=== PATIENT | male | born 1960 | race Caucasian/White ===

== ENCOUNTER 2017-12-05 16:22 | Emergency (ER) | payer MEDICARE, OTHER ==
[~2017-12-05] VITALS: Ht 177.8 cm; Wt 77.1 kg
[2017-12-05] MEDS ORDERED: SERTRALINE HCL100 MG PO (16:38)
[2017-12-05] MEDS ORDERED: GABAPENTIN800 MG PO (16:38)
[2017-12-05] MEDS ORDERED: PANTOPRAZOLE SO40 MG (16:39)
[2017-12-05] MEDS ORDERED: AMLODIPINE BES2.5 MG PO (16:39)
[2017-12-05] MEDS ORDERED: POTASSIUM CHLO20 ME1 PO (16:39)
[2017-12-05] MEDS ORDERED: CYCLOBENZAPRINE5 MG (16:39)
[2017-12-05] MEDS ORDERED: KETOROLAC TROME10 MG PO (16:54)
[2017-12-05] MEDS ORDERED: CLEOCIN HCL300 MG PO (16:54)
== END 2017-12-05 17:03 | disposition home or self-care (01) ==
LOC: ED 16:22
DX: R68.84 Jaw pain (principal); Z88.8 Allergy status to other drugs, medicaments and biological substances; Z79.899 Other long term (current) drug therapy
CPT/HCPCS: 99283

== ENCOUNTER 2018-11-15 07:20 | Emergency (ER) | payer MEDICARE, OTHER ==
[~2018-11-15] VITALS: Ht 177.8 cm; Wt 77.1 kg
--- OUTSIDE RECORDS SUMMARY | ~2018-11-15 | XMS | Clinical Summary ---
Demographics + + + | Address | [address] | | | [place] [address] | + + + | Home Phone | | + + + | Preferred Language | Unknown | + + + | Marital Status | | + + + | Restorationist Affiliation | 1038 | + + + | Race | Unknown | + + + | Ethnic Group | Unknown | + + + Author + + + | Author | [facility] | | | and [place] | + + + | Organization | [facility] | | | and [place] | + + + | Address | Unknown | + + + | Phone | Unavailable | + + + Support + + +---------+ + | Name | Relationship | Address | Phone | + + +---------+ + | Shyanne Valdez | ECON | Unknown | | + + +---------+ + | Shae Covarrubias | ECON | Unknown | | + + +---------+ + Care Team Providers + +------+ + | Care Rn Palliative Name | Role | Phone | + +------+ + | Howie Biswas MD | PP | | + +------+ + Allergies + + + + + + | Active Allergy | Reactions | Severity | Noted | Comments | | | | | Date | | + + + + + + | Adhesive & Tape | Hives | High | 08/18/19 | | | | | | 18 | | + + + + + + | Latex | Rash | High | 08/18/19 | | | | | | 18 | | + + + + + + | Meperidine | Hives | High | 08/28/19 | | | | | | 12 | | + + + + + + Medications + + + +---------+------+------+-------+ | Medication | Sig | Dispensed | Refills | Star | End | Statu | | | | | | t | Date | s | | | | | | Date | | | + + + +---------+------+------+-------+ | sertraline | 2 tablets daily | | 0 | 03/26 | | Activ | | (ZOLOFT) 100 mg | | | | 11/12 | | e | | tablet | | | | 12 | | | + + + +---------+------+------+-------+ | nitroglycerin | Place 0.4 mg under | | 0 | 09/1 | | Activ | | (NITROSTAT) 0.4 mg | the tongue as | | | 4/20 | | e | | SL tablet | needed. | | | 12 | | | + + + +---------+------+------+-------+ | cyclobenzaprine | Take 10 mg by mouth | | 0 | 09/1 | | Activ | | (FLEXERIL) 10 mg | 3 times daily. | | | 4/20 | | e | | tablet | | | | 12 | | | + + + +---------+------+------+-------+ | amLODIPine | Take 2.5 mg by mouth | | 0 | | | Activ | | (NORVASC) 2.5 mg | Daily. | | | | | e | | tablet | | | | | | | + + + +---------+------+------+-------+ | pantoprazole | Take 40 mg by mouth | | 0 | | | Activ | | (PROTONIX) 40 mg | every morning | | | | | e | | tablet | (before breakfast). | | | | | | + + + +---------+------+------+-------+ | potassium chloride | Take 10 mEq by mouth | | 0 | | | Activ | | (KLOR-CON) 10 MEQ | 2 times daily. | | | | | e | | ER tablet | | | | | | | + + + +---------+------+------+-------+ | albuterol 2.5 mg/3 | Take 2.5 mg by | | 0 | | | Activ | | mL nebulizer | nebulization every 4 | | | | | e | | solution | hours as needed for | | | | | | | | Wheezing, Shortness | | | | | | | | of Breath or | | | | | | | | Increased Work of | | | | | | | | Breathing. | | | | | | + + + +---------+------+------+-------+ | calcium | Take 1 tablet by | | 0 | | | Activ | | citrate-vitamin D | mouth 2 times daily. | | | | | e | | (CALCITRATE PLUS D) | | | | | | | | 315 mg-200 units per | | | | | | | | tablet | | | | | | | + + + +---------+------+------+-------+ | | Take 1 capsule by | | 0 | | | Activ | | Glucosamine-Chondroi | mouth Daily. | | | | | e | | t-Vit C-Mn | | | | | | | | (GLUCOSAMINE 1500 | | | | | | | | COMPLEX) CAPS | | | | | | | + + + +---------+------+------+-------+ | ibuprofen | Take 600 mg by mouth | | 0 | | | Activ | | (ADVIL,MOTRIN) 600 | 3 times daily. | | | | | e | | MG tablet | | | | | | | + + + +---------+------+------+-------+ | acetaminophen | Take 1,300 mg by | | 0 | | | Activ | | (TYLENOL 8 HOUR | mouth Daily as | | | | | e | | ARTHRITIS PAIN) 650 | needed for Pain. | | | | | | | MG CR tablet | | | | | | | + + + +---------+------+------+-------+ | gabapentin | Take 300 mg by mouth | | 0 | | | Activ | | (NEURONTIN) 300 mg | 3 times daily. | | | | | e | | capsule | | | | | | | + + + +---------+------+------+-------+ | albuterol (PROAIR | Inhale 2 puffs into | | 0 | | | Activ | | HFA) 90 mcg/puff | the lungs every 4 | | | | | e | | inhaler | hours as needed for | | | | | | | | Wheezing. | | | | | | + + + +---------+------+------+-------+ Active Problems + + + | Problem | Noted Date | + + + | BACK PAIN, CHRONIC | | + + + Encounters +--------+ + + + + | Date | Type | Specialty | Care Team | Description | +--------+ + + + + | 08/31/ | Telephone | | Berto Pruitt, | Appointment | | 2019 | | | MD | | +--------+ + + + + from Last 3 Months Immunizations + + + + | Name | Dates Previously Given | Next Due | + + + + | INFLUENZA PF | 05/31/2017, 06/10/2016 | | | QUAD(PED/ADOL/ADULT) | | | | ,PSKT or VIAL | | | + + + + | PNEUMOCOCCAL | 06/10/2016 | | | CONJUGATE 13-VALENT | | | | (PCV13) | | | + + + + | TD PF (2 LF TETANUS) | 03/26/2010 | | | (ADOL/ADULT) | | | + + + + Family History + + +------+ + | Medical History | Relation | Name | Comments | + + +------+ + | Hepatitis B | Brother | | | + + +------+ + | Cancer | Brother | | unknown | + + +------+ + | Cancer | Father | | Throat cancer | + + +------+ + | Arthritis | Mother | | | + + +------+ + | Other (see comment) | Mother | | sepsis | + + +------+ + | Lung cancer | Sister | | reported | + + +------+ + + +------+ + + | Relation | Name | Status | Comments | + +------+ + + | Brother | | | | + +------+ + + | Brother | | Alive | | + +------+ + + | Father | | | | + +------+ + + | Mother | | | | + +------+ + + | Sister | | Alive | | + +------+ + + Social History + + + +--------+ + | Tobacco Use | Types | Packs/Day | Years | Date | | | | | Used | | + + + +--------+ + | Former Smoker | Cigarettes | 0.5 | 32 | 01/16/1970 - | | | | | | 07/27/2016 | + + + +--------+ + + +---+---+---+ | Smokeless Tobacco: | | | | | Never Used | | | | + +---+---+---+ + + | Tobacco Cessation: Counseling Given: No | + + + + +---------+ + | Alcohol Use | Drinks/We | oz/Week | Comments | | | ek | | | + + +---------+ + | No | | | | + + +---------+ + + + + | Sex Assigned at | Date Recorded | | | | + + + | Not on file | | + + + + + + + | Job Start Date | Occupation | Industry | + + + + | Not on file | Not on file | Not on file | + + + + + + + + | Travel History | Travel Start | Travel End | + + + + + + | No recent travel history available. | + + Last Filed Vital Signs + + + + | Vital Sign | Reading | Time Taken | + + + + | Blood Pressure | 124/80 | 08/18/2017838 PST | + + + + | Pulse | 52 | 08/18/2017838 PST | + + + + | Temperature | - | - | + + + + | Respiratory Rate | - | - | + + + + | Oxygen Saturation | 97% | 08/18/2017838 PST | + + + + | Inhaled Oxygen | - | - | | Concentration | | | + + + + | Weight | 79.6 kg (175 lb 7.8 | 08/18/2017838 PST | | | oz) | | + + + + | Height | 177.8 cm (5' 10") | 08/18/2017838 PST | + + + + | Body Mass Index | 25.18 | 08/18/2017838 PST | + + + + Plan of Treatment +--------+---------+ + + + | Date | Type | Specialty | Care Team | Description | +--------+---------+ + + + | 12/05/ | Office | | Berto Pruitt, | | | 2018 | Visit | | MD Melissa Almaguer | | | | | | [place] | | | | | | [place] | | | | | | [id number] | | | | | | | | +--------+---------+ + + + + + + + + | Health Maintenance | Due Date | Last Done | Comments | + + + + + | Hepatitis C | | | | | Screening | 8 | | | + + + + + | Colorectal Cancer | | | | | Screening | 8 | | | | (Colonoscopy) | | | | + + + + + | Vaccine: Zoster (1 | | | | | of 2) | 8 | | | + + + + + | Adult Annual | | | | | Wellness Visit | 5 | | | + + + + + | Statin Therapy | | | | | (optimal intensity) | 5 | | | + + + + + | Vaccine: | | 06/08/2012, 04/23/2010, | | | Dtap/Tdap/Td (2 - | 2 | 03/26/2010 | | | Td) | | | | + + + + + | Vaccine: Influenza | Completed | 05/10/2018, 05/31/2017, | | | | | 06/10/2016, Additional history | | | | | exists | | + + + + + Results Not on filefrom Last 3 Months Insurance + +--------+ +--------+ +---------+--------+ | Payer | Benefi | Subscriber | Effect | Phone | Address | Type | | | t Plan | ID | aranza | | | | | | / | | Dates | | | | | | Group | | | | | | + +--------+ +--------+ +---------+--------+ | MEDICARE | MEDICA | [id number] | 09/24/19 | [phone] | | Medica | | | RE | | 05-Pre | 5 | | re | | | PART A | | sent | | | | | | AND B | | | | | | + +--------+ +--------+ +---------+--------+ | [employer] PLAN | MODA | [id number] | 07/06/ | [phone] | | Medica | | MEDICAID HMO | HEALTH | | 2017-P | 1 | | id | | | MDCD | | resent | | | | | | [place]MO [place] | | | | | | + +--------+ +--------+ +---------+--------+ + +--------+ +--------+ + + | Guarantor Name | Accoun | Relation to | Date | Phone | Billing Address | | | t Type | Patient | of | | | | | | | | | | + +--------+ +--------+ + + | Onesimo Covarrubias | Person | Self | [birth year] | [address] | | | al/[place] | | 1960 | [phone] | [place] [address] | | | myranda | | | 7 (Home) | | + +--------+ +--------+ + + Advance Directives Patient has advance care planning documents on file. For more information, please contact:[place] [address]
--- OUTSIDE RECORDS SUMMARY | ~2018-11-15 | XMS | Clinical Summary ---
Demographics + + + | Address | [address] | | | [place] [address] | + + + | Home Phone | | + + + | Preferred Language | Unknown | + + + | Marital Status | | + + + | Zoroastrianism Affiliation | Unknown | + + + | Race | White | + + + | Ethnic Group | Not or | + + + Author + + + | Author | [facility] | + + + | Organization | [facility] | + + + | Address | Unknown | + + + | Phone | Unavailable | + + + Support + + + + + | Name | Relationship | Address | Phone | + + + + + | KAROLYN ALEGRIA | ECON | [address] | | | | | #[place] | | | | | [address] | | + + + + + Care Team Providers + +------+ + | Care Pre School Manager Name | Role | Phone | + +------+ + | Kyaw Greene MD | PP | | + +------+ + Source Comments TAZ is fully live on both [facility] and [facility] InPatient.[facility] Allergies Not on File Current Medications No known medications Active Problems Not on file Social History + +-------+ +--------+------+ | Tobacco Use | Types | Packs/Day | Years | Date | | | | | Used | | + +-------+ +--------+------+ | Current Every Day | | | | | | Smoker | | | | | + +-------+ +--------+------+ + + + | Sex Assigned at | Date Recorded | | | | + + + | Not on file | | + + + Last Filed Vital Signs + + + + | Vital Sign | Reading | Time Taken | + + + + | Blood Pressure | - | - | + + + + | Pulse | 52 | 07/02/2006 11:51 AM PST | + + + + | Temperature | - | - | + + + + | Respiratory Rate | - | - | + + + + | Oxygen Saturation | - | - | + + + + | Inhaled Oxygen | - | - | | Concentration | | | + + + + | Weight | 79.4 kg (175 lb) | 07/02/2006 11:51 AM PST | + + + + | Height | 177.8 cm (5' 10") | 07/02/2006 11:51 AM PST | + + + + | Body Mass Index | 25.11 | 07/02/2006 11:51 AM PST | + + + + Plan of Treatment + + + + + | Health Maintenance | Due Date | Last Done | Comments | + + + + + | Pneumococcal (Adult) | | | | | (1 of 1 - PPSV23) | 7 | | | + + + + + | Influenza (Flu) | | | | | vaccination (#1) | 8 | | | + + + + + Results Not on filefrom Last 3 Months
--- OUTSIDE RECORDS SUMMARY | ~2018-11-15 | XMS | Encounter Summary ---
Demographics + + + | Address | [address] | | | [place] [address] | + + + | Home Phone | | + + + | Preferred Language | Unknown | + + + | Marital Status | | + + + | Yazdanism Affiliation | 1038 | + + + | Race | Unknown | + + + | Ethnic Group | Unknown | + + + Author + + + | Author | [facility] | | | and [place] | + + + | Organization | [facility] | | | and [place] | [...] Team Providers + +------+ + | Care Nuclear Equipment Design Engineer Name | Role | Phone | + +------+ + | Howie Biswas MD | PCP | | + +------+ + Reason for Visit + + + | Reason | Comments | + + + | Appointment | | + + + Encounter Details +--------+ + + + + | Date | Type | Department | Care Team | Description | +--------+ + + + + | 08/31/ | Telephone | [facility] | Berto Pruitt, | Appointment | | 2019 | | PULMONARY [address] | | | | | [place], | [place], [place] | | | | | [place] [address] | [place], [place] | | | | | [phone] | [address] | | | | | | | | +--------+ + + + + Social History + + + [...] + + documented as of this encounter Plan of Treatment +--------+---------+ + + + | Date | Type | Specialty | Care Team | Description | +--------+---------+ + + + | 12/05/ | Office | Pulmonology | Berto Pruitt, | | | 2018 | Visit | | MD [address] | | | | | | [place], [place] | | | | | | [place] | | | | | | [address] | | | | | | | | +--------+---------+ + + + documented as of this encounter Visit Diagnoses Not on filedocumented in this encounter"
--- OUTSIDE RECORDS SUMMARY | ~2018-11-15 | XMS | Encounter Summary ---
Demographics + + + | Address | [address] | | | [place] [address] | + + + | Home Phone | | + + + | Preferred Language | Unknown | + + + | Marital Status | | + + + | Denominational Affiliation | 1038 | + + + | Race | Unknown | + + + | Ethnic Group | Unknown | + + + Author + + + | Author | [facility] | | | and [place] | + + + | Organization | [facility] | | | and [place] [...] Team Providers + +------+ + | Care Photovoltaic Solar Cell Designer Name | Role | Phone | + [...] + | 08/31/ | Telephone | [facility] | Berto Pruitt, | Appointment | | 2019 | | PULMONARY [address] | | | | | [place], | [place], [place] | | | | | [place] [address] | [place], [place] | | | | | [phone] | [address] | | | | | | | [...] 2018 | Visit | | MD [address] | | | | | | [place], [place] | | | | | | [place] | | | | | | [address] | | | | | | | | +--------+---------+ + + + documented as of this encounter Visit Diagnoses Not on filedocumented in this encounter"
--- OUTSIDE RECORDS SUMMARY | ~2018-11-15 | XMS | Clinical Summary ---
Demographics + + + | Address | [address] | | | [place] [address] | + + + | Home Phone | | + + + | Preferred Language | Unknown | + + + | Marital Status | | + + + | Congregational Affiliation | 1038 | + + + | Race | Unknown | + + + | Ethnic Group | Unknown | + + + Author + + + | Author | [facility] | | | and [place] | + + + | Organization | [facility] | | | and [place] | [...] Team Providers + +------+ + | Care Bindery Cutter Operator Name | Role | Phone | [...] | | | | | [place] | | | | | | [address] | | | | | | | [...] +--------+ +---------+--------+ | MEDICARE | MEDICA | [id number] | 09/24/19 | [phone] | | Medica | | | RE | | 05-Pre | 5 | | re | | | PART A | | sent | | | | | | AND B | | | | | | + +--------+ +--------+ +---------+--------+ | MOD[employer] PLAN | MODA | [id number] | 07/06/ | [phone] | | Medica | | MEDICAID HMO [...] | | al/[place] | | 1960 | [phone] | [place] [address] | | | myranda | | | 7 (Home) | | + +--------+ +--------+ + + Advance Directives Patient has advance care planning documents on file. For more information, please contact:[facility] [place] [address]
--- OUTSIDE RECORDS SUMMARY | ~2018-11-15 | XMS | Clinical Summary ---
Demographics + + + | Address | [address] | | | [place] [address] | + + + | Home Phone | | + + + | Preferred Language | Unknown | + + + | Marital Status | | + + + | Lutheran Affiliation | Unknown | + + + [...] + | KAROLYN ALEGRIA | ECON | [address] | | | | | #[place] | | | | | [address] | | + + + + + Care Team Providers + +------+ + | Care Aurist Name | Role | Phone | + +------+ + | Kyaw Greene MD | PP | | + +------+ + Source Comments TAZ is fully live on both [facility] and [facility] InPatient.[facility] Allergies Not on File Current Medications No [...]
[~2018-11-15 07:20] MED LIST: ACETAMINOPHEN-1 EAC1 PO; AMLODIPINE BES2.5 MG PO; ANORO ELLIPTA1 EACH INH; CLEOCIN HCL300 MG PO; CLINDAMYCIN HC300 MG PO; CYCLOBENZAPRINE5 MG; GABAPENTIN800 MG PO; KETOROLAC TROME10 MG PO; PANTOPRAZOLE SO40 MG; PANTOPRAZOLE SO40 MG PO; POTASSIUM CHLO20 ME1 PO; SERTRALINE HCL100 MG PO; ULTRAM50 MG PO; VENTOLIN HFA18 GM INH
--- OUTSIDE RECORDS SUMMARY | 2018-11-15 07:24 | XMS ---
PreManage Notification: FRANCINE ALEGRIA Security Funeral Planner Events No recent Security Events currently on file CRITERIA MET - [facility] - [facility] Care Guidelines [facility] Raven Kowalski Licensed Club Manager/Sweatband Cutting Machine Operator 11/19/2017-Current PHONE: [phone] Flaquito Alonso Licensed Club Manager/Sweatband Cutting Machine Operator 11/19/2017-Current PHONE: [phone] Flaquito Alonso Licensed Club Manager/Sweatband Cutting Machine Operator 11/19/2017-Current PHONE: [phone] Howie Biswas [facility] 04/04/2018-Current PHONE: Unknown Flaquito Alonso Primary [facility] 11/19/2017-Current PHONE: [phone] Alek has no Care Guidelines for this patient. Care History Medical/Surgical 04/04/2018 [facility] - Patient is currently established with [facility]. If patient is seen in the ED during business hours. Please contact CHWs at [facility]. Care Recommendation: This patient has had 5 or more Emergency Department visits in the last 12 months.\T\nbsp; Patient requires education on the scope and purpose of the ED as an acute care provider not a Primary Care Provider and should not be utilized for chronic conditions.\T\nbsp; These are guidelines and the provider should exercise clinical judgment when providing care. E.D. VISIT COUNT (12 MO.) 4 [facility]. TOTAL 4 NOTE: Visits indicate total known visits. ED/UCC VISIT TRACKING (12 MO.) 11/15/2018 07:21 [facility] [place] TYPE: Emergency COMPLAINT: - BACK PAIN/NO INJURY 04/03/2018 09:24 [facility] [place] TYPE: Emergency COMPLAINT: - JAW PAIN/NO INJURY DIAGNOSES: - Essential (primary) hypertension - Other prison (current) drug therapy - Allergy status to other drugs, medicaments and biological substances status - Other specified disorders of teeth and supporting structures - Personal history of nicotine dependence 02/25/2018 18:27 [facility] [place] [place] TYPE: Emergency COMPLAINT: - POSS INFECTION DIAGNOSES: - Periapical abscess without sinus - Localized swelling, mass and lump, head - Nicotine dependence, unspecified, uncomplicated - Essential (primary) hypertension - Allergy status to other drugs, medicaments and biological substances status - Other prison (current) drug therapy - Major depressive disorder, single episode, unspecified 12/05/2017 16:[address] [facility] [place] TYPE: Emergency COMPLAINT: - POSS INFECTION IN MOUTH DIAGNOSES: - Jaw pain - Other prison (current) drug therapy - Allergy status to other drugs, medicaments and biological substances status INPATIENT VISIT TRACKING (12 MO.) No inpatient visits to display in this time frame [id number]
[2018-11-15] MEDS ORDERED: MELOXICAM7.5 MG PO (08:21)
[2018-11-15] MEDS ORDERED: NORCO 10-325 T1 EACH PO (08:21)
[2018-11-15] MEDS ORDERED: CYCLOBENZAPRINE10 MG PO (08:21)
== END 2018-11-15 08:50 | disposition home or self-care (01) ==
LOC: ED 07:20
DX: M25.551 Pain in right hip (principal); J44.9 Chronic obstructive pulmonary disease, unspecified; F17.210 Nicotine dependence, cigarettes, uncomplicated; F32.9 Major depressive disorder, single episode, unspecified; I10 Essential (primary) hypertension; Z88.5 Allergy status to narcotic agent; Z79.899 Other long term (current) drug therapy
CPT/HCPCS: 73502; 96372; 99283-25; J1885

== ENCOUNTER 2018-12-26 10:51 | Emergency (ER) | payer MEDICARE, OTHER ==
[~2018-12-26] VITALS: Ht 177.8 cm; Wt 77.1 kg
--- OUTSIDE RECORDS SUMMARY | ~2018-12-26 | XMS | Encounter Summary ---
Demographics + + + | Address | [address] | | | [place] [address] | + + + | Home Phone | | + + + | Preferred Language | Unknown | + + + | Marital Status | | + + + | Alevism Affiliation | Unknown | + + + | Race | White | + + + | Ethnic Group | Not or | + + + Author + + + | Author | [facility] | + + + | Organization | [facility] | + + + | Address | Unknown | + + + | Phone | Unavailable | + + + Support + + + + + | Name | Relationship | Address | Phone | + + + + + | Shyanne Covarrubias | ECON | [address] | | | | | #[place] | | | | | [address] | | + + + + + Care Team Providers + +------+ + | Care Ceiling Installer Name | Role | Phone | + +------+ + | Kyaw Greene MD | PCP | | + +------+ + Reason for Referral Consultation (Routine) +--------+--------+ + + + + | Status | Reason | Specialty | Diagnoses / | Referred By | Referred To | | | | | Procedures | Contact | Contact | +--------+--------+ + + + + | Closed | | Pain Medicine | Diagnoses | Eliot Baez, | Ramana | | | | / Pain | | [address] | MD Tio | | | | Management | Displacement | [address] | [address] | | | | | of lumbar | [address] | [address] | | | | | intervertebr | [place], [place] | [place] | | | | | al disc | [address] | [address] | | | | | without | Phone: | Phone: | | | | | myelopathy | [phone] | [phone] | | | | | Procedures | Fax: | Fax: | | | | | CONSULT TO | [phone] | [phone] | | | | | [facility] | | | +--------+--------+ + + + + Reason for Visit + + + | Reason | Comments | + + + | New patient | | | consultation | | + + + Encounter Details +--------+---------+ + + + | Date | Type | Department | Care Team | Description | +--------+---------+ + + + | 07/02/ | Office | [facility] Orthopaedics | Eliot Baez MD | Displacement of | | 2005 | Visit | & Rehabilitation | [address] | Lumbar | | | | [address] | [address] [place], | Intervertebral Disc | | | | Suite [facility] | [place] [address] | without Myelopathy | | | | [address], | [phone] | (Primary Dx) | | | | [facility] | | | | | | [place], [place] | | | | | | [address] | | | | | | [phone] | | | +--------+---------+ + + + Social History + +-------+ +--------+------+ | Tobacco Use | Types | Packs/Day | Years | Date | | | | | Used | | + +-------+ +--------+------+ | Current Every Day | | | | | | Smoker | | | | | + +-------+ +--------+------+ + + +---------+ + | Alcohol Use | Drinks/Week | oz/Week | Comments | + + +---------+ + | Not Asked | | | | + + +---------+ [...] recent travel history available. | + + documented as of this encounter Last Filed Vital Signs + + + + + | Vital Sign | Reading | Time Taken | Comments | + + + + + | Blood Pressure | - | - | | + + + + + | Pulse | 52 | 07/02/2006 11:51 AM | | | | | PST | | + + + + + | Temperature | - | - | | + + + + + | Respiratory Rate | - | - | | + + + + + | Oxygen Saturation | - | - | | + + + + + | Inhaled Oxygen | - | - | | | Concentration | | | | + + + + + | Weight | 79.4 kg (175 lb) | 07/02/2006 11:51 AM | | | | | PST | | + + + + + | Height | 177.8 cm (5' 10") | 07/02/2006 11:51 AM | | | | | PST | | + + + + + | Body Mass Index | 25.11 | 07/02/2006 11:51 AM | | | | | PST | | + + + + + documented in this encounter Progress Notes Eliot Baez - 07/02/2006 11:57 AM PSTThe patient is Onesimo Covarrubias is a 46 y.o. male who presen ts to me with low back pain and left sciatic nerve pain. The pain has been present since 200 0. The pain began with a work accident. He was lifting and felt pain. The onset of the sympt oms was sudden. The patient had two surgeries in his lower back (1999, 2000). The pain worse evan. The pain is rated as moderate and it is staying the same. The pain was described as con stant. The pain improves with rest and medication and worsens with sitting. The patient believes the symptoms are not changed and interfering with ADL and he cannot wo rk . His major problem is the dysesthetic leg left leg pain. Patient is in moderate distress due to leg pain. He is otherwise a well developed and well nourished. Examination of the lumbar spine reveals 10 degrees of extension, 50 degrees of flexion, an d 10 degrees or right and 10 degrees of left rotation was noted. There was no pain with the range of motion of the lumbar spine. No pain was noted with palpation and percussion of the lumbar and thoracic spine. Muscle spasm was not present. Motor examination of the lower extremities demonstrated 5/5 motor strength of hip flexor, k nee extensor, ankle dorsiflexor, plantar flexor, and EHL on the right. His left EHL was 3/5 and dorsiflexor is 3/5. Light touch was intact throughout the lower extremities. knee and an kle reflexes were bilaterally symmetrical at 1+. No evidence of hyperreflexia of the lower e xtremities were noted. Babinski exam was negative. The patient's gait was antalgic, and the isabelle was poor. Straight leg exam was normal bilaterally. Range of motion of the hips were normal. MRI was shows no active neurocompression. Assessment: dysethesia Plan: I have had a good luck with treating these patients with a spinal cord stimulator. I will make a referral to pain management for possible spinal cord stimulator trial.Electronic ally signed by Eliot Baez at 07/02/2006 12:23 PM PSTdocumented in this encounter Plan of Treatment Not on filedocumented as of this encounter Visit Diagnoses + + | Diagnosis | + + | Displacement of lumbar intervertebral disc without myelopathy - Primary | + + documented in this encounter
--- OUTSIDE RECORDS SUMMARY | ~2018-12-26 | XMS | Encounter Summary ---
Demographics + + + | Address | [address] | | | [place] [address] | + + + | Home Phone | | + + + | Preferred Language | Unknown | + + + | Marital Status | | + + + | Samaritan Affiliation | 1038 | + + + | Race | Unknown | + + + | Ethnic Group | Unknown | + + + Author + + + | Author | [facility] | + + + | Organization | [facility] | + + + | Address | [...] Team Providers + +------+ + | Care Admission Discharge Rn Name | Role | Phone | + +------+ + | Howie Biswas MD | PCP | | + +------+ + Encounter Details +--------+ + + + + | Date | Type | Department | Care Team | Description | +--------+ + + + + | 12/01/ | Orders Only | [facility] | Zari Villagran, | | | 2018 | | Pulmonology [address] | | | | | [address] | | | | | | [place] | | | | | | [address] | | | | | | [phone] | | | +--------+ + + + + Social History + +-------+ +--------+------+ | Tobacco Use | Types | Packs/Day | Years | Date | | | | | Used | | + +-------+ +--------+------+ | Former Smoker | | 0.25 | 30 | | + +-------+ +--------+------+ + +---+---+---+ | Smokeless Tobacco: | | | | | Never Used | | | | + +---+---+---+ + + +---------+ + | Alcohol Use | Drinks/We | oz/Week | Comments | | | ek | | | + + +---------+ + | No | | | | + + +---------+ + + + + | Sex Assigned at | Date Recorded | | | | + + + | Not on file | | + + + as of this encounter Plan of Treatment +--------+---------+ + + + | Date | Type | Specialty | Care Team | Description | +--------+---------+ + + + | 01/06/ | Office | Pulmonology | Dann Frias | | | 2019 | Visit | | Venu Sierra MD [address] | | | | | | [address] | | | | | | [place] [address] | | | | | | [phone] | | | | | | | | +--------+---------+ + + + as of this encounter Visit Diagnoses Not on filein this encounter"
--- OUTSIDE RECORDS SUMMARY | ~2018-12-26 | XMS | Encounter Summary ---
Demographics + + + | Address | [address] | | | [place] [address] | + + + | Home Phone | | + + + | Preferred Language | Unknown | + + + | Marital Status | | + + + | Yarsani Affiliation | Unknown | + + + | Race | White | + + + | Ethnic Group | Not or | + + + Author + + + | Author | [facility] | + + + | Organization | [facility] | + + + | Address | Unknown | + + + | Phone | Unavailable | + + + Support + + + + + | Name | Relationship | Address | Phone | + + + + + | Shyanne Covarrubias | ECON | [address] | | | | | #[place] | | | | | [address] | | + + + + + Care Team Providers + +------+ + | Care Barrel Handler Name | Role | Phone | + +------+ + | Kyaw Greene MD | PCP | | + +------+ + Reason for Visit + + + | Reason | Comments | + + + | Refill Request | | + + + Encounter Details +--------+--------+ + + + | Date | Type | Department | Care Team | Description | +--------+--------+ + + + | 11/17/ | Refill | Cardiology Cardiac | Aditi Phillips RN | Refill Request | | 2011 | | Transplant at [facility] | [address] | | | | | [address] | [facility] | | | | | Mailcode: CH9A | [place], [place] | | | | | [facility] | [address] | | | | | and | | | | | | Floor [place], [place] | | | | | | [address] | | | | | | [phone] | | | +--------+--------+ + + + Social History + +-------+ [...] as of this encounter Plan of Treatment Not on filedocumented as of this encounter Visit Diagnoses Not on filedocumented in this encounter"
--- OUTSIDE RECORDS SUMMARY | ~2018-12-26 | XMS | Encounter Summary ---
Demographics + + + | Address | [address] | | | [place] [address] | + + + | Home Phone | | + + + | Preferred Language | Unknown | + + + | Marital Status | | + + + | Muslim Affiliation | 1038 | + + + | Race | Unknown | + + + | Ethnic Group | Unknown | + + + Author + + + | Author | [facility] | + + + | Organization | [facility] | + + + | Address [...] Team Providers + +------+ + | Care Casino Investigator Name | Role | Phone | + +------+ + | Howie Biswas MD | PCP | | + +------+ + Encounter Details +--------+ + + + + | Date | Type | Department | Care Team | Description | +--------+ + + + + | 12/22/ | Documentati | [facility] | Howie Lakhani DO | | | 2019 | on Only | [facility] | [address] | | | | | [address] | [place] | | | | | [place] | [address] | | | | | [address] | | | | | | [phone] | | | +--------+ + + + [...] [address] | | | | | | [place] [address] | | | | | | [phone] | | | | | | | | +--------+---------+ + + + as of this encounter Visit Diagnoses Not on filein this encounter"
--- OUTSIDE RECORDS SUMMARY | ~2018-12-26 | XMS | Encounter Summary ---
Demographics + + + | Address | [address] | | | [place] [address] | + + + | Home Phone | | + + + | Preferred Language | Unknown | + + + | Marital Status | | + + + | Pentecostalism Affiliation | Unknown | + + + | Race | White | + + + | Ethnic Group | Not or | + + + Author + + + | Author | [facility] | + + + | Organization | [facility] | + + + | Address | Unknown | + + + | Phone | Unavailable | + + + Support + + + + + | Name | Relationship | Address | Phone | + + + + + | Shyanne Covarrubias | ECON | [address] | | | | | #[place] | | | | | [address] | | + + + + + Care Team Providers + +------+ + | Care Mattress Maker Name | Role | Phone | + +------+ + | Kyaw Greene MD | PCP | | + +------+ + Reason for Visit +--------+ + | Reason | Comments | +--------+ + | Other | | +--------+ + Encounter Details +--------+ + + + + | Date | Type | Department | Care Team | Description | +--------+ + + + + | 09/09/ | Telephone | Orthopaedic Spine | Eliot Baez MD | Other | | 2006 | | [place] at [facility] [address] | [address] | | | | | [address] | [address] [facility], | | | | | Mailcode: CH8N | [place] [address] | | | | | [facility] | [phone] | | | | | and [place], [address] | | | | | | Floor [place], [place] | | | | | | [address] | | | | | | [phone] | | | +--------+ + + + [...]
--- OUTSIDE RECORDS SUMMARY | ~2018-12-26 | XMS | Clinical Summary ---
Demographics + + + | Address | [address] | | | [place] [address] | + + + | Home Phone | | + + + | Preferred Language | Unknown | + + + | Marital Status | | + + + | Scientologist Affiliation | Unknown | + + + [...] + | Shyanne Covarrubias | ECON | [address] | | | | | #[place], [place] | | | | | [address] | | + + + + + Care Team Providers + +------+ + | Care Power Tong Operator Name | Role | Phone | + +------+ + | Kyaw Greene MD | PP | | + +------+ + Source Comments TAZ is fully live on both [facility] Ambulatory and [facility] InPatient.[facility] Allergies Not on File Medications No known medications Active Problems Not [...] | | + + + + + Plan of Treatment + + + + + | Health Maintenance | Due Date | Last Done | Comments | + + + + + | Pneumococcal (Adult) | | | | | (1 of 1 - PPSV23) | 7 | | | + + + + + | Influenza (Flu) | | | | | vaccination (Season | 9 | | | | Ended) | | | | + + + + + Results Not on filefrom Last 3 Months
--- OUTSIDE RECORDS SUMMARY | ~2018-12-26 | XMS | Encounter Summary ---
Demographics + + + | Address | [address] | | | [place] [address] | + + + | Home Phone | | + + + | Preferred Language | Unknown | + + + | Marital Status | | + + + | Hindu Affiliation | 1038 | + + + | Race | Unknown | + + + | Ethnic Group | Unknown | + + + Author + + + | Author | [facility] | + + + | Organization | [facility] | + + + | Address [...] Team Providers + +------+ + | Care Machine Stemmer Name | Role | Phone | + +------+ + | Howie Biswas MD | PCP | | + +------+ + Reason for Referral MRI/CAT Scan (Routine) +--------+--------+ + + + + | Status | Reason | Specialty | Diagnoses / | Referred By | Referred To | | | | | Procedures | Contact | Contact | +--------+--------+ + + + + | Closed | | Radiology | Diagnoses | Rodriguez, | [facility] [address] | | | | | | Dann | [address] | | | | | Hypersensiti | Venu Sierra MD | [address]vd | | | | | vity | [address] | [place] | | | | | pneumonitis | [address] | [address] Phone: | | | | | ([facility]) | [address] | [phone] | | | | | Interstitial | [place] | | | | | | lung | [address] | | | | | | disease | Phone: | | | | | | ([facility]) | [phone] | | | | | | Procedures | Fax: | | | | | | CT chest | [phone] | | | | | | high | | | | | | | resolution | | | +--------+--------+ + + + + MRI/CAT Scan (Routine) +--------+--------+ + + + + | Status | Reason | Specialty | Diagnoses / | Referred By | Referred To | | | | | Procedures | Contact | Contact | +--------+--------+ + + + + | Closed | | Radiology | Diagnoses | Rodriguez, | [facility] [address] | | | | | | Vincent | [address] | | | | | Hypersensiti | Venu Sierra MD | Blvd | | | | | vity | [address] | [place] | | | | | pneumonitis | [address] | [address] Phone: | | | | | ([facility]) | [address] | [phone] | | | | | Interstitial | [place] | | | | | | lung | [address] | | | | | | disease | Phone: | | | | | | ([facility]) | [phone] | | | | | | Procedures | Fax: | | | | | | CT chest | [phone] | | | | | | high | | | | | | | resolution | | | +--------+--------+ + + + + Reason for Visit MRI/CAT Scan (Routine) +--------+--------+ + + + + | Status | Reason | Specialty | Diagnoses / | Referred By | Referred To | | | | | Procedures | Contact | Contact | +--------+--------+ + + + + | Closed | | Radiology | Diagnoses | Rodriguez, | [facility] [address] | | | | | | Vincent | [address] | | | | | Hypersensiti | Venu Sierra MD | Blvd | | | | | vity | [address] | [place] | | | | | pneumonitis | [address] | [address] Phone: | | | | | ([facility]) | [address] | [phone] | | | | | Interstitial | [place] | | | | | | lung | [address] | | | | | | disease | Phone: | | | | | | ([facility]) | [phone] | | | | | | Procedures | Fax: | | | | | | CT chest | [phone] | | | | | | high | | | | | | | resolution | | | +--------+--------+ + + + + Encounter Details +--------+ + + + + | Date | Type | Department | Care Team | Description | +--------+ + + + + | 12/12/ | Hospital | [facility] | Dann Frias | Hypersensitivity | | 2019 | Encounter | [facility] | Venu Sierra MD [address] | pneumonitis (HCC); | | | | CT [address] | [address] | Interstitial lung | | | | [address] | [place] [address] | disease (HCC) | | | | [place] [address] | [phone] | | | | | [phone] | | | +--------+ + + + [...] + + + as of this encounter Medications at Time of Discharge + + +--------+---------+ + + | Medication | Sig. | Disp. | Refills | Start | End Date | | | | | | Date | | + + +--------+---------+ + + | amLODIPine | Take 2.5 mg by mouth | | | | | | (NORVASC) 2.5 MG | daily. | | | | | | tablet | | | | | | + + +--------+---------+ + + | atorvastatin | Take 10 mg by mouth | | | | | | (LIPITOR) 10 MG | nightly. | | | | | | tablet | | | | | | + + +--------+---------+ + + | celecoxib | Take 100 mg by mouth | | | | | | (CELEBREX) 100 MG | 2 (two) times | | | | | | capsule | daily. | | | | | + + +--------+---------+ + + | cephALEXin | Take 500 mg by mouth | | | | | | (KEFLEX) 500 MG | 4 (four) times | | | | | | capsule | daily. | | | | | + + +--------+---------+ + + | cyclobenzaprine | Take 5 mg by mouth 2 | | | | | | (FLEXERIL) 5 MG | (two) times daily. | | | | | | tablet | | | | | | + + +--------+---------+ + + | gabapentin | Take 800 mg by mouth | | | | | | (NEURONTIN) 800 MG | 3 (three) times | | | | | | tablet | daily. | | | | | + + +--------+---------+ + + | pantoprazole | Take 40 mg by mouth | | | | | | (PROTONIX) 40 MG | every morning before | | | | | | tablet | breakfast. | | | | | + + +--------+---------+ + + | potassium chloride | Take 20 mEq by mouth | | | | | | (KLOR-CON) 20 MEQ | 2 (two) times | | | | | | packet | daily. | | | | | + + +--------+---------+ + + | sertraline | Take 50 mg by mouth | | | | | | (ZOLOFT) 50 MG | daily. | | | | | | tablet | | | | | | + + +--------+---------+ + + | varenicline | Take one 0.5mg | 53 | 0 | 12/02/19 | | | (CHANTIX SKIP) 0.5 MG | tablet by mouth once | tablet | | 19 | 9 | | X 11 & 1 MG X 42 | daily for 3 days, | | | | | | tabletIndications: | then increase to one | | | | | | Personal history of | 0.5mg tablet twice | | | | | | tobacco use, | daily for 3 days, | | | | | | presenting hazards | then increase to one | | | | | | to health | 1mg tablet twice | | | | | | | daily. | | | | | + + +--------+---------+ + + as of this encounter Plan [...] [address] | | | | | | [place] [address] | | | | | | [phone] | | | | | | | | +--------+---------+ + + + as of this encounter Procedures + +--------+ + + + | Procedure Name | Priori | Date/Time | Associated Diagnosis | Comments | | | ty | | | | + +--------+ + + + | CT CHEST HIGH | Routin | 12/12/2018 | Hypersensitivity | Results for this | | RESOLUTION | e | 3:15 PM | pneumonitis (HCC) | procedure are in the | | | | PDT | Interstitial lung | results section. | | | | | disease (HCC) | | + +--------+ + + + in this encounter Results CT chest high resolution (12/12/2018 3:15 PM) + + + | Impressions | Performed At | + + + | Severe chronic interstitial lung disease with severe fibrotic | [facility] | | changes characterized principally by subpleural honeycombing. The | RADIOLOGY | | patient has had a previous left open lung biopsy and there are also | | | centrilobular ground-glass nodules in the lung bases, latter finding | | | can be seen in chronic hypersensitivity pneumonitis. The pattern | | | of subpleural honeycombing is more typical of UIP, however. Signed | | | by: Gosia Roman, Navneet Sign Date/Time: 12/14/2018 8:23 AM | | + + + + + + | Narrative | Performed At | + + + | CT CHEST WITHOUT CONTRAST (CPT) CT CHEST HIGH RESOLUTION CLINICAL | [facility] | | INFORMATION: ILD with h/o hypersensitivity pneumonitis, | RADIOLOGY | | Hypersensitivity pneumonitis, Interstitial lung disease. [age] | | | year 1/2 pack per day current smoker. COMPARISON: None PROCEDURE: | | | Axial images through the chest with thin section reconstructions. | | | Additional limited prone and expiratory views when possible. | | | Multiplanar reconstructions. At least one of the following CT dose | | | optimization techniques were used: Automated exposure control; | | | Adjustment of mA and/or kV according to patient size; Use of | | | iterative reconstruction technique. FINDINGS: LUNGS, PLEURA AND | | | AIRWAYS: Severe bilateral subpleural predominant | | | honeycombing. Poorly defined diffusely distributed centrilobular | | | ground-glass nodules in the lung bases. Surgical staple line in the | | | left base from previous open lung biopsy. CHEST Mediastinum: No | | | significant pericardial, great vessel or esophageal abnormality. No | | | mediastinal mass. Lymph Nodes: No adenopathy. Upper Abdomen: No | | | significant abnormality in the visualized upper abdomen. BODY WALL | | | Soft Tissues: No bowel or inflamed fat containing hernia, mass or | | | hemorrhage. Bones: No acute fracture or vertebral end plate | | | destruction. No lytic or blastic lesion. | | + + + + + | Procedure Note | + + | Sharif, Rad Results In - 12/14/2018 8:[address] CHEST WITHOUT CONTRAST (CPT) | | CT CHEST HIGH RESOLUTION | | CLINICAL INFORMATION: | | ILD with h/o hypersensitivity pneumonitis, Hypersensitivity | | pneumonitis, Interstitial lung disease. Forty year 1/2 pack per day | | current smoker. | | COMPARISON: | | None | | PROCEDURE: | | Axial images through the chest with thin section reconstructions. | | Additional limited prone and expiratory views when possible. | | Multiplanar reconstructions. | | At least one of the following CT dose optimization techniques were | | used: Automated exposure control; Adjustment of mA and/or kV according | | to patient size; Use of iterative reconstruction technique. | | FINDINGS: | | LUNGS, PLEURA AND AIRWAYS: Severe bilateral subpleural predominant | | honeycombing. Poorly defined diffusely distributed centrilobular | | ground-glass nodules in the lung bases. Surgical staple line in the | | left base from previous open lung biopsy. | | CHEST | | Mediastinum: No significant pericardial, great vessel or esophageal | | abnormality. No mediastinal mass. | | Lymph Nodes: No adenopathy. | | Upper Abdomen: No significant abnormality in the visualized upper | | abdomen. | | BODY WALL | | Soft Tissues: No bowel or inflamed fat containing hernia, mass or | | hemorrhage. | | Bones: No acute fracture or vertebral end plate destruction. No lytic | | or blastic lesion. | | IMPRESSION: | | Severe chronic interstitial lung disease with severe fibrotic changes | | characterized principally by subpleural honeycombing. The patient has | | had a previous left open lung biopsy and there are also centrilobular | | ground-glass nodules in the lung bases, latter finding can be seen in | | chronic hypersensitivity pneumonitis. The pattern of subpleural | | honeycombing is more typical of UIP, however. | | Signed by: Gosia Roman Gordon | | Sign Date/Time: 12/14/2018 8:23 AM | + + + + + + + | Performing | Address | City/State/Zipcode | Phone Number | | Organization | | | | + + + + + | [facility] | [address] | [place] [address] | | + + + + + in this encounter Visit Diagnoses + + | Diagnosis | + + | Hypersensitivity pneumonitis (HCC) | + + | Unspecified allergic alveolitis and pneumonitis | + + | Interstitial lung disease (HCC) | + + | Postinflammatory pulmonary fibrosis | + +"
--- OUTSIDE RECORDS SUMMARY | ~2018-12-26 | XMS | Clinical Summary ---
Demographics + + + | Address | [address] | | | [place] [address] | + + + | Home Phone | | + + + | Preferred Language | Unknown | + + + | Marital Status | | + + + | Yarsani Affiliation | 1038 | + + + | Race | Unknown | + + + | Ethnic Group | Unknown | + + + Author + + + | Author | [facility] | | | and Jitendraana | + + + | Organization | [facility] | | | and Jitendraana | + + + | Address | [...] Team Providers + +------+ + | Care Family Physician Name | Role | Phone | + [...] | | + + + +---------+------+------+-------+ | atorvaSTATin | Take 10 mg by mouth | | 0 | | | Activ | | (LIPITOR) 10 mg | nightly. | | | | | e | | tablet | | | | | | | + + + +---------+------+------+-------+ | cephalexin | Take 1 capsule by | 28 | 0 | 05/0 | | Expir | | (KEFLEX) 500 mg | mouth 4 times daily | capsule | | 09/14 | 04/14 | ed | | capsule | for 7 days. | | | 19 | 19 | | + + + +---------+------+------+-------+ Active Problems + + + | Problem | Noted Date | + + + | BACK PAIN, CHRONIC | | + + + Encounters +--------+ + + + + | Date | Type | Specialty | Care Team | Description | +--------+ + + + + | 11/24/ | Emergency | | Jadiel Hernandez | Abscess (Primary | | 2018 | | | Kelvin, MD | Dx); Facial abscess | +--------+ + + + + from [...] + + + | Blood Pressure | 147/76 | 11/24/20182012 PDT | + + + + | Pulse | 48 | 11/24/20182011 PDT | + + + + | Temperature | 36 C (96.8 F) | 11/24/2018 1701 PDT | + + + + | Respiratory Rate | 16 | 11/24/2018 1920 PDT | + + + + | Oxygen Saturation | 100% | 11/24/20182011 PDT | + + + + | Inhaled Oxygen | - | - | | Concentration | | | + + + + | Weight | 75.8 kg (167 lb) | 11/24/20181700 PDT | + + + + | Height | 177.8 cm (5' 10") | 11/24/20181700 PDT | + + + + | Body Mass Index | 23.96 | 11/24/20181700 PDT | + + + + Plan of [...] | | + + + + + Procedures + +--------+ + + + | Procedure Name | Priori | Date/Time | Associated Diagnosis | Comments | | | ty | | | | + +--------+ + + + | INCISION AND | Routin | 11/26/2018 | | Results for this | | DRAINAGE | e | 1:35 PDT | | procedure are in the | | | | | | results section. | + +--------+ + + + | CT SOFT TISSUE NECK | STAT | 11/24/2018 | | Results for this | | W CONTRAST | | 19:09 PDT | | procedure are in the | | | | | | results section. | + +--------+ + + + | EXTRA GREEN TOP TUBE | STAT | 11/24/2018 | | Results for this | | | | 18:56 PDT | | procedure are in the | | | | | | results section. | + +--------+ + + + | EXTRA LAVENDER TOP | STAT | 11/24/2018 | | Results for this | | TUBE | | 18:56 PDT | | procedure are in the | | | | | | results section. | + +--------+ + + + | COMPREHENSIVE | STAT | 11/24/2018 | | Results for this | | METABOLIC PANEL | | 18:56 PDT | | procedure are in the | | | | | | results section. | + +--------+ + + + | CBC WITH | STAT | 11/24/2018 | | Results for this | | DIFFERENTIAL | | 18:56 PDT | | procedure are in the | | | | | | results section. | + +--------+ + + + | ED INFORMATION | Routin | 11/24/2018 | | | | EXCHANGE | e | 18:10 PDT | | | + +--------+ + + + +---+--------+ | | | | | Proced | | | ure | | | Note - | | | Kia, | | | Lab In | | | | | | Hlseve | | | n - | | | | | | 2018 | | | 1811 | | | PDT | | | Format | | | ting | | | of | | | this | | | note | | | might | | | be | | | differ | | | ent | | | from | | | the | | | origin | | | al.COL | | | LECTIV | | | E?NOTI | | | FICATI | | | ON?05/ | | | 02/201 | | | 9 | | | 16:49? | | | LAMMEY | | | , | | | FRANCINE | | | W?MRN: | | | | | | [id number] | | | [id number] | | | riteri | | | a Met | | | Care | | | Guidel | | | inesSe | | | curity | | | and | | | Safety | | | No | | | recent | | | | | | Securi | | | ty | | | Events | | | | | | curren | | | tly on | | | | | | fileED | | | Care | | | Guidel | | | inesTh | | | ere | | | are | | | curren | | | tly no | | | ED | | | Care | | | Guidel | | | aretha | | | for | | | this | | | patien | | | t. | | | Please | | | check | | | your | | | facili | | | ty's | | | medica | | | l | | | record | | | s | | | system | | | .Care | | | Histor | | | yMedic | | | al/Willy | | | [email or web address] | | | /10/18 | | | 12:00 | | | AM | | | [facility] | | | al | | | Patien | | | t is | | | curren | | | tly | | | establ | | | ished | | | with | | | St | | | [facility] | [facility] | | | . If | | | patien | | | t is | | | seen | | | in the | | | ED | | | during | | | | | | busine | | | ss | | | hours. | | | | | | Please | | | | | | contac | | | t [facility] at [facility] | | | | | | [facility] | | | y | | | Clinic | | | .Care | | | Recomm | | | endati | | | on:Thi | | | s | | | patien | | | t has | | | had 5 | | | or | | | more | | | Emerge | | | ncy | | | Depart | | | ment | | | visits | | | in | | | the | | | last | | | 12 | | | months | | | .? | | | Patien | | | t | | | requir | | | es | | | educat | | | ion on | | | the | | | scope | | | and | | | purpos | | | e of | | | the ED | | | as an | | | acute | | | care | | | provid | | | er not | | | a | | | Primar | | | y Care | | | | | | Provid | | | er and | | | | | | should | | | not | | | be | | | utiliz | | | ed for | | | | | | chroni | | | c | | | condit | | | ions.? | | | These | | | are | | | guidel | | | aretha | | | and | | | the | | | provid | | | er | | | should | | | | | | exerci | | | se | | | clinic | | | al | | | judgme | | | nt | | | when | | | provid | | | ing | | | care.P | | | rescri | | | ption | | | Drug | | | Report | | | (12 | | | Mo.)PD | | | MP | | | query | | | found | | | no | | | report | | | .E.D. | | | Visit | | | Count | | | (12 | | | mo.)Fa | | | cility | | | | | | Visits | | | Low | | | Acuity | | | | | | Provid | | | ence | | | St. | | | [facility] | | | Medica | | | l | | | Center | | | 1 0 | | | [facility] | | [facility] | | | al 4 0 | | | Total | | | 5 0 | | | Note: | | | Visits | | | | | | indica | | | te | | | total | | | known | | | visits | | | . | | | Medica | | | id Low | | | | | | Acuity | | | Dx | | | are | | | the | | | number | | | of | | | primar | | | y | | | diagno | | | ses on | | | the | | | Medica | | | id's | | | Low | | | Acuity | | | dx | | | list. | | | | | | Recent | | | | | | Emerge | | | ncy | | | Depart | | | ment | | | Visit | | | [facility] | | | yDate | | | Facili | | | ty | | | City | | | State | | | Type | | | Diagno | | | ses or | | | Chief | | | | | | Compla | | | int | | | May 2, | | | 2019 | | | Provid | | | ence | | | [facility] | [facility] [place] | | | [place] | | | Emerge | | | ncy | | | lump | | | on jaw | | | | | | Jaw | | | Swelli | | | ng | | | Apr | | | 23, | | | 2019 | | | [facility] [place] [facility] | [facility] | | | [place] | | | [place] | | | Emerge | | | ncy | | | | | | Nicoti | | | ne | | | depend | | | ence, | | | cigare | | | ttes, | | | uncomp | | | licate | | | d | | | Major | | | depres | | | sive | | | disord | | | er, | | | single | | | | | | episod | | | e, | | | unspec | | | ified | | | | | | Chroni | | | c | | | obstru | | | ctive | | | pulmon | | | kaitlyn | | | diseas | | | e, | | | unspec | | | ified | | | | | | Pain | | | in | | | right | | | hip | | | | | | Allerg | | | y | | | status | | | to | | | narcot | | | ic | | | agent | | | status | | | | | | Other | | | long | | | term | | | (curre | | | nt) | | | drug | | | therap | | | y | | | Essent | | | ial | | | (prima | | | ry) | | | hypert | | | ension | | | Sep | | | 9, | | | 2018 | | | [facility] | [facility] | | | [place] | | | [place] | | | Emerge | | | ncy | | | | | | Essent | | | ial | | | (prima | | | ry) | | | hypert | | | ension | | | | | | Other | | | long | | | term | | | (curre | | | nt) | | | drug | | | therap | | | y | | | Allerg | | | y | | | status | | | to | | | other | | | drugs, | | | | | | medica | | | ments | | | and | | | biolog | | | ical | | | substa | | | nces | | | status | | | | | | Other | | | specif | | | ied | | | disord | | | ers of | | | teeth | | | and | | | suppor | | | ting | | | struct | | | ures | | | | | | Person | | | al | | | histor | | | y of | | | nicoti | | | ne | | | depend | | | ence | | | Aug 3, | | | 2018 | | | [facility] | | | [place] | | | [place] | | | Emerge | | | ncy | | | | | | Periap | | | ical | | | absces | | | s | | | withou | | | t | | | sinus | | | | | | Locali | | | zed | | | swelli | | | ng, | | | mass | | | and | | | lump, | | | head | | | | | | Nicoti | | | ne | | | depend | | | ence, | | | unspec | | | ified, | | | | | | uncomp | | | licate | | | d | | | Essent | | | ial | | | (prima | | | ry) | | | hypert | | | ension | | | | | | Allerg | | | y | | | status | | | to | | | other | | | drugs, | | | | | | medica | | | ments | | | and | | | biolog | | | ical | | | substa | | | nces | | | status | | | | | | Other | | | long | | | term | | | (curre | | | nt) | | | drug | | | therap | | | y | | | Major | | | depres | | | sive | | | disord | | | er, | | | single | | | | | | episod | | | e, | | | unspec | | | ified | | | May | | | 13, | | | 2018 | | | [facility] | | | [facility] | | | [place] | | | [place] | | | Emerge | | | ncy | | | Jaw | | | pain | | | | | | Other | | | long | | | term | | | (curre | | | nt) | | | drug | | | therap | | | y | | | Allerg | | | y | | | status | | | to | | | other | | | drugs, | | | | | | medica | | | ments | | | and | | | biolog | | | ical | | | substa | | | nces | | | status | | | | | | Recent | | | | | | Inpati | | | ent | | | Visit | | | [facility] | | | yNo | | | record | | | ed | | | inpati | | | ent | | | visits | | | . Care | | | | | | Provid | | | ersPro | | | vider | | | PRC | | | Type | | | Phone | | | Fax | | | Servic | | | e | | | Dates | | | Kowalski, | | | Raven | | | Case | | | Manage | | | r/Care | | | | | | Coordi | | | nator | | | ([phone]) | | | [phone] | | | 38 | | | Apr | | | 27, | | | 2018 - | | | | | | Curren | | | t | | | [place]ose | | | n, | | | [place]quito | | | Case | | | Manage | | | r/Care | | | | | | Coordi | | | nator | | | ([phone]) | | | [phone] | | | 48 | | | Apr | | | 27, | | | 2018 - | | | | | | Curren | | | t | | | [place] | | | n, | | | [place] | | | Case | | | Manage | | | r/Care | | | | | | Coordi | | | nator | | | ([phone]) | | | [phone] | | | 48 | | | Apr | | | 27, | | | 2018 - | | | | | | Curren | | | t | | | Schwar | | | tz, | | | Howie | | | , | | | D.O. | | | Family | | | | | | Medici | | | ne | | | Sep | | | 10, | | | 2018 - | | | | | | Curren | | | t | | | [place]ose | | | n, | | | [place] | | | Primar | | | y Care | | | (541) | | | | | | [phone] | | | 48 | | | Apr | | | 27, | | | 2018 - | | | | | | Curren | | | t | | | [facility]le[facility] | | | tive | | | Portal | | | This | | | patien | | | t has | | | regist | | | ered | | | at the | | | | | | Provid | | | ence | | | St. | | | Coni | | | Medica | | | l | | | Center | | | | | | Emerge | | | ncy | | | Depart | | | ment | | | For | | | more | | | inform | | | ation | | | visit: | | | | | | https: | | | //secu | | | [email or web address] | | | ecarep | | | [email or web address] | | | m/magdalena | | | ent/31 | | | [id number] | | | [id number] | | | [id number] | | | [id number] | | | [id number] | | | [phone] | | | andnbs | | | p | | | PLEASE | | | NOTE: | | | 1. | | | Any | | | care | | | recomm | | | endati | | | ons | | | and | | | other | | | clinic | | | al | | | inform | | | ation | | | are | | | provid | | | ed as | | | guidel | | | aretha | | | or for | | | | | | histor | | | ical | | | purpos | | | es | | | only, | | | and | | | provid | | | ers | | | should | | | | | | exerci | | | se | | | their | | | own | | | clinic | | | al | | | judgme | | | nt | | | when | | | provid | | | ing | | | care. | | | 2. | | | You | | | may | | | only | | | use | | | this | | | inform | | | ation | | | for | | | purpos | | | es of | | | treatm | | | ent, | | | paymen | | | t or | | | health | | | care | | | operat | | | ions | | | activi | | | ties, | | | and | | | subjec | | | t to | | | the | | | limita | | | tions | | | of | | | applic | | | able | | | Collec | | | tive | | | Polici | | | es. | | | 3. | | | You | | | should | | | | | | consul | | | t | | | direct | | | ly | | | with | | | the | | | organi | | | zation | | | that | | | provid | | | ed a | | | care | | | guidel | | | ine or | | | other | | | | | | clinic | | | al | | | histor | | | y with | | | any | | | questi | | | ons | | | about | | | additi | | | onal | | | inform | | | ation | | | or | | | accura | | | cy or | | | comple | | | teness | | | of | | | inform | | | ation | | | provid | | | ed.? | | | 2019 | | | [facility]le[facility] | | | tive | | | Medica | | | l | | | [employer] | | | logies | | | , Inc[employer] | | | - | | | [email or web address] | | | llecti | | | vemedi | | | sera.co | | | m | +---+--------+ from Last 3 Months Results Incision/Drainage (11/26/2018 1:35 PDT) + + + | Narrative | Performed At | + + + | Jadiel Hernandez MD 11/26/2018 1:40 | | | Incision/Drainage Date/Time: 11/26/2018 1:38 Performed by: Jadiel | | | Kelvin Hernandez MD Authorized by: Jadiel Hernandez MD | | | Consent: Consent obtained: Verbal Consent given | | | by: Patient Risks discussed: Bleeding, damage to other | | | organs, infection, incomplete drainage and pain Alternatives | | | discussed: Referral, observation, alternative treatment, delayed | | | treatment and no treatment Location: Type: Abscess | | | Size: 5 Location: Head Head/neck location: L and | | | submandibular. Pre-procedure details: Skin | | | preparation: Chloraprep Anesthesia: Anesthesia | | | method: Local infiltration Local anesthetic: Lidocaine 1% | | | w/o epi Procedure type: Complexity: Complex Procedure | | | details: Needle aspiration: no Incision | | | types: Single straight Incision depth: Dermal Scalpel | | | blade: 11 Wound management: Probed and deloculated | | | Drainage: Purulent Drainage amount: Moderate Wound | | | treatment: Wound left open Packing materials: None | | | Post-procedure details: Patient tolerance of | | | procedure: Tolerated well, no immediate complications | | + + + CT Soft Tissue Neck w Contrast (11/24/2018 19:09 PDT) + + | Specimen | + + | | + + + + + | Narrative | Performed At | + + + | EXAM: CT SOFT TISSUE NECK W CONTRAST dated 11/24/2018 7:07 PM | [facility] | | TECHNIQUE: After administration of 75 mL of Omnipaque 350 | | | intravenously, axial CT imaging was obtained through the neck with | | | coronal and sagittal reformats. CLINICAL INFORMATION: Jaw | | | swelling. Mass at L jaw under mandible. COMPARISON: None | | | available. FINDINGS: Visualized brain: Unremarkable | | | Paranasal sinuses: The visible paranasal sinuses are clear. There | | | is a prominent left nasal septal spur. The visible mastoid air | | | cells are clear. Bones: There is cervical spondylosis. There | | | are no suspicious lytic or blastic bone lesions. No acute or | | | healing fractures. Nasopharynx: Unremarkable. Suprahyoid neck: | | | The patient is edentulous. The parapharyngeal space and and | | | retropharyngeal space are unremarkable. There is a focal ovoid area | | | of hypoattenuation with what appears to be an enhancing rim. This | | | is seen along the left mandibular body. It measures approximately | | | 1.9 x 1.3 x 2.2 cm. There are no changes in the adjacent bone. . | | | Infrahyoid neck: Normal larynx, hypopharynx, and supraglottis. | | | Lymph nodes: No lymphadenopathy. Thyroid and salivary glands: | | | Normal. Thoracic inlet: Reticulonodular pattern in both upper | | | lobes. This is known from prior studies. Vascular structures: No | | | significant atherosclerotic narrowing in the internal carotid | | | arteries. IMPRESSION - 1.9 x 1.3 x 2.2 cm region of | | | hypoattenuation with a component of peripheral enhancement. This | | | is seen along the left mandibular body. This could be a small | | | abscess. This could be an infected skin lesion. This would be an | | | atypical spot for a necrotic lymph node. Partially visualized | | | interstitial lung disease in the apices. This has been recognized | | | on prior studies and is not an acute process. Correlate with the | | | patient's prior history. Dictated and Signed by: Francine Clement | | | Electronically signed: 11/24/2018 7:36 PM | | + + + + + | Procedure Note | + + | Kia, Rad Results In - 11/24/2018 1939 PDT EXAM: CT SOFT TISSUE NECK W CONTRAST dated | | 11/24/2018 7:07 PMTECHNIQUE: After administration of 75 mL of Omnipaque 350 intravenously, | | axialCT imaging was obtained through the neck with coronal and sagittal | | reformats.CLINICAL INFORMATION: Jaw swelling. Mass at L jaw under mandible.COMPARISON: | | None available.FINDINGS: Visualized brain: UnremarkableParanasal sinuses: The visible | | paranasal sinuses are clear. There is aprominent left nasal septal spur. The visible | | mastoid air cells are clear.Bones: There is cervical spondylosis. There are no | | suspicious lytic or blasticbone lesions. No acute or healing fractures.Nasopharynx: | | Unremarkable.Suprahyoid neck: The patient is edentulous. The parapharyngeal space and | | andretropharyngeal space are unremarkable. There is a focal ovoid area | | ofhypoattenuation with what appears to be an enhancing rim. This is seen alongthe left | | mandibular body. It measures approximately 1.9 x 1.3 x 2.2 cm. Thereare no changes in | | the adjacent bone..Infrahyoid neck: Normal larynx, hypopharynx, and supraglottis. Lymph | | nodes: No lymphadenopathy. Thyroid and salivary glands: Normal. Thoracic inlet: | | Reticulonodular pattern in both upper lobes. This is known fromprior studies.Vascular | | structures: No significant atherosclerotic narrowing in the internalcarotid | | arteries.IMPRESSION - 1.9 x 1.3 x 2.2 cm region of hypoattenuation with a component of | | peripheralenhancement. This is seen along the left mandibular body. This could be | | asmall abscess. This could be an infected skin lesion. This would be anatypical spot | | for a necrotic lymph node.Partially visualized interstitial lung disease in the apices. | | This has beenrecognized on prior studies and is not an acute process. Correlate with | | thepatient's prior history.Dictated and Signed by: Francine Clement MD Electronically | | signed: 11/24/2018 7:36 PM | |hypoattenuation with what appears to be an enhancing rim. This is seen along | |the left mandibular body. It measures approximately 1.9 x 1.3 x 2.2 cm. There | |are no changes in the adjacent bone. | |. | |Infrahyoid neck: Normal larynx, hypopharynx, and supraglottis. | | | |Lymph nodes: No lymphadenopathy. | |Thyroid and salivary glands: Normal. | |Thoracic inlet: Reticulonodular pattern in both upper lobes. This is known from | |prior studies. | |Vascular structures: No significant atherosclerotic narrowing in the internal | |carotid arteries. | | | | | |IMPRESSION - | | | |1.9 x 1.3 x 2.2 cm region of hypoattenuation with a component of peripheral | |enhancement. This is seen along the left mandibular body. This could be a | |small abscess. This could be an infected skin lesion. This would be an | |atypical spot for a necrotic lymph node. | | | |Partially visualized interstitial lung disease in the apices. This has been | |recognized on prior studies and is not an acute process. Correlate with the | |patient's prior history. | | | |Dictated and Signed by: Francine Clement MD | | Electronically signed: 11/24/2018 7:36 PM | + + + +---------+ + + | Performing | Address | City/State/Zipcode | Phone Number | | Organization | | | | + +---------+ + + | [facility] | | | | + +---------+ + + Extra Lavender Top Tube (11/24/2018 18:56 PDT) + +-------+ + + + | Component | Value | Ref Range | Performed | Pathologist | | | | | At | Signature | + +-------+ + + + | Extra | Done | | [facility] | | | Lavender | | | [facility] | | | Top Tube | | | [facility]ICAL | | | | | | CENTER - | | | | | | LABORATORY | | + +-------+ + + + + + | Specimen | + + | Blood | + + + + + + + | Performing | Address | City/State/Zipcode | Phone Number | | Organization | | | | + + + + + | [facility] | [address] | [place] | [phone] | | [facility] | | [address] | | | - LABORATORY | | | | + + + + + Extra Green Top Tube (11/24/2018 18:56 PDT) + +-------+ + + + | Component | Value | Ref Range | Performed | Pathologist | | | | | At | Signature | + +-------+ + + + | Extra Green | Done | | [facility] | | | Top Tube | | | [facility] | | | | | | [facility] | | | | | | CENTER - | | | | | | LABORATORY | | + +-------+ + + + + + | Specimen | + + | Blood | + + + + + + + | Performing | Address | City/State/Zipcode | Phone Number | | Organization | | | | + + + + + | [facility] | [address] | [place] | [phone] | | [facility] | | [address] | | | - LABORATORY | | | | + + + + + CBC with Differential (11/24/2018 18:56 PDT) + + + + + + | Component | Value | Ref Range | Performed | Pathologist | | | | | At | Signature | + + + + + + | WBC | 8.4 | 4.0 - 11.0 K/uL | [facility] | | | | | | [facility] | | | | | | [facility]ICAL | | | | | | C[facility] - | | | | | | LABORATORY | | + + + + + + | RBC | 4.14 (L) | 4.30 - 5.70 | [facility] | | | | | M/uL | [facility] | | | | | | MEDICAL | | | | | | CENTER - | | | | | | LABORATORY | | + + + + + + | Hemoglobin | 12.4 (L) | 13.5 - 18.0 | [facility] | | | | | g/dL | [facility] | | | | | | MEDICAL | | | | | | CENTER - | | | | | | LABORATORY | | + + + + + + | Hematocrit | 38.5 (L) | 40.0 - 51.0 % | [facility] | | | | | | [facility] | | | | | | [facility] | | | | | | CENTER - | | | | | | LABORATORY | | + + + + + + | MCV | 93.0 | 83.0 - 101.0 fL | [facility] | | | | | | [facility] | | | | | | [facility] | | | | | | C[facility] - | | | | | | LABORATORY | | + + + + + + | MCH | 30.0 | 28.0 - 35.0 pg | [facility] | | | | | | [facility] | | | | | | [facility] | | | | | | C[facility] - | | | | | | LABORATORY | | + + + + + + | MCHC | 32.2 | 32.0 - 36.0 | [facility] | | | | | g/dL | [facility] | | | | | | MEDICAL | | | | | | CENTER - | | | | | | LABORATORY | | + + + + + + | RDW-CV | 13.6 | <15.0 % | [facility] | | | | | | [facility] | | | | | | [facility] | | | | | | C[facility] - | | | | | | LABORATORY | | + + + + + + | RDW-SD | 46.5 (H) | 35.1 - 46.3 fL | [facility] | | | | | | [facility] | | | | | | [facility] | | | | | | C[facility] - | | | | | | LABORATORY | | + + + + + + | Platelet | 230 | 140 - 440 K/uL | [facility] | | | Count | | | [facility] | | | | | | [facility] | | | | | | CENTER - | | | | | | LABORATORY | | + + + + + + | MPV | 9.5 | 6.5 - 12.4 fL | [facility] | | | | | | [facility] | | | | | | [facility] | | | | | | C[facility] - | | | | | | LABORATORY | | + + + + + + | % | 70.7 | 45.0 - 82.0 % | [facility] | | | Neutrophils | | | [facility] | | | | | | MEDICAL | | | | | | [facility] - | | | | | | LABORATORY | | + + + + + + | % | 23.8 | 20.0 - 45.0 % | [facility] | | | Lymphocytes | | | [facility] | | | | | | [facility] | | | | | | [facility] - | | | | | | LABORATORY | | + + + + + + | % Monocytes | 3.8 (L) | 4.0 - 12.0 % | [facility] | | | | | | [facility] | [facility] | [facility] | [facility] | | | | | | [facility] - | | | | | | LABORATORY | | + + + + + + | % | 1.3 | 0.0 - 5.0 % | [facility] | | | Eosinophils | | | [facility] - | | | | | | LABORATORY | | + + + + + + | % Basophils | 0.2 | 0.0 - 1.0 % | [facility] | [facility] | [facility] | [facility] | | [facility] | [facility] | | | | | | [facility] - | | | | | | LABORATORY | | + + + + + + | % Immature | 0.2 | 0.0 - 0.4 % | [facility] | | | Granulocyte | | | [facility] | | | [facility] | | | [facility] | | | | | | [facility]ENTER - | | | | | | LABORATORY | | + + + + + + | Absolute | 5.93 | 1.80 - 8.50 | [facility] | | | Neutrophils | | K/uL | [facility] | | | | [facility] | [facility] | | | | | | [facility] - | | | | | | LABORATORY | | + + + + + + | Absolute | 2.00 | 0.60 - 3.20 | [facility] | | | Lymphocytes | | K/uL | [facility] | | | | | | [facility] | | | | | | [facility] - | | | | | | LABORATORY | | + + + + + + | Absolute | 0.32 | 0.00 - 1.00 | [facility] | | | Monocytes | | K/uL | [facility] | | | | | | [facility] | | | | | | [facility] - | | | | | | LABORATORY | | + + + + + + | Absolute | 0.11 | 0.00 - 0.40 | [facility] | | | Eosinophils | | K/uL | [facility] | | | | | | [facility] | | | | | | [facility] - | | | | | | LABORATORY | | + + + + + + | Absolute | 0.02 | 0.00 - 0.10 | [facility] | | | Basophils | | K/uL | [facility] | | | | | | MEDICAL | | | | | | CENTER - | | | | | | LABORATORY | | + + + + + + | Absolute | 0.02 | 0.00 - 0.03 | [facility] | | | Immature | | K/uL | [facility] | | | Granulocyte | | | MEDICAL | | | s | | | CENTER - | | | | | | LABORATORY | | + + + + + + | % nRBC | 0 | 0 - 2 per 100 | [facility] | | | | | WBCs | [facility] | | | | | | MEDICAL | | | | | | CENTER - | | | | | | LABORATORY | | + + + + + + | Absolute | 0.00 | 0.00 - 0.01 | [facility] | | | nRBC | | K/uL | [facility] | | | | | | MEDICAL | | | | | | CENTER - | | | | | | LABORATORY | | + + + + + + + + | Specimen | + + | Blood | + + + + + + + | Performing | Address | City/State/Zipcode | Phone Number | | Organization | | | | + + + + + | [facility] | [address] | [place], [place] | [phone] | | [facility] | | [address] | | | - LABORATORY | | | | + + + + + Comprehensive Metabolic Panel (11/24/2018 18:56 PDT) + + + + + + | Component | Value | Ref Range | Performed | Pathologist | | | | | At | Signature | + + + + + + | Na | 135 (L) | 136 - 145 | [facility] | | | | | mmol/L | [facility] | | [facility] | MEDICAL | | | | | | CENTER - | | | | | | LABORATORY | | + + + + + + | K | 4.2 | 3.4 - 5.1 | [facility] | | | | | mmol/L | [facility] | | | | | | MEDICAL | | | | | | CENTER - | | | | | | LABORATORY | | + + + + + + | Cl | 104 | 98 - 107 mmol/L | [facility] | | | | | | [facility] | | | | | | MEDICAL | | | | | | CENTER - | | | | | | LABORATORY | | + + + + + + | CO2 | 28 | 20 - 31 mmol/L | [facility] | | | | | | [facility] | | | | | | MEDICAL | | | | | | CENTER - | | | | | | LABORATORY | | + + + + + + | Anion Gap | 3 | 3 - 16 mmol/L | [facility] | | | | | | [facility] | | | | | | MEDICAL | | | | | | CENTER - | | | | | | LABORATORY | | + + + + + + | Glucose | 104 | 60 - 106 mg/dL | [facility] | | | | | | [facility] | | | | | | MEDICAL | | | | | | CENTER - | | | | | | LABORATORY | | + + + + + + | BUN | 28 (H) | 9 - 23 mg/dL | [facility] | | | | | | [facility] | | | | [facility] | [facility]ICAL | | | | | | CENTER - | | | | | | LABORATORY | | + + + + + + | Creatinine | 1.52 (H) | 0.70 - 1.30 | [facility] | | | | | mg/dL | [facility] | | | | | | MEDICAL | | | | | | CENTER - | | | | | | LABORATORY | | + + + + + + | eGFR if not | 47 (L)Comment: | >=60 | [facility] | | | | GLOMERULAR FILTRATION | mL/min/1.73m2 | [facility] | | | [place] | RATE,ESTIMATED mL/min | | MEDICAL | | | | /1.53k1Mxfx than 60 | | CENTER - | | | | Chronic kidney | | LABORATORY | | | | disease,if found over a | | | | | | 3-month period.Less than | | | | | | 15 Kidney | | | | | | failureFor | | | | | | Americans,multiply the | | | | | | calculated GFR by 1.21. | | | | | | | | | | + + + + + + | Ca | 9.3 | 8.7 - 10.4 | [facility] | | | | | mg/dL | [facility] | | | | | | MEDICAL | | | | | | CENTER - | | | | | | LABORATORY | | + + + + + + | Albumin | 4.5 | 3.2 - 4.8 g/dL | [facility] | | | | | | [facility] | | | | | | MEDICAL | | | | | | CENTER - | | | | | | LABORATORY | | + + + + + + | Bilirubin | 0.2 (L) | 0.3 - 1.2 mg/dL | [facility] | | | Total | | | [facility] | | | | | | MEDICAL | | | | | | CENTER - | | | | | | LABORATORY | | + + + + + + | Total | 7.5 | 5.7 - 8.2 g/dL | [facility] | | | Protein | | | [facility] | | | | | | MEDICAL | | | | | | CENTER - | | | | | | LABORATORY | | + + + + + + | AST | 25 | 0 - 34 U/L | [facility] | | | | | | [facility] | | | | | | MEDICAL | | | | | | CENTER - | | | | | | LABORATORY | | + + + + + + | ALT | 13 | 10 - 49 U/L | [facility] | | | | | | [facility] | | | | | | MEDICAL | | | | | | CENTER - | | | | | | LABORATORY | | + + + + + + | Alkaline | 166 (H) | 46 - 116 U/L | [facility] | | | Phosphatase | | | [facility] | | | | | | MEDICAL | | | | | | CENTER - | | | | | | LABORATORY | | + + + + + + | Globulin | 3.0 | 2.1 - 3.8 g/dL | [facility] | | | | | | [facility] | | | | | | MEDICAL | | | | | | CENTER - | | | | | | LABORATORY | | + + + + + + | Albumin/Mandy | 1.5 | 0.8 - 1.9 | [facility] | | | bulin Ratio | | | [facility] | | | | | | MEDICAL | | | | | | CENTER - | | | | | | LABORATORY | | + + + + + + | BUN/Creatin | 18.4 | | [facility] | | | ine Ratio | | | [facility] | | | | | | MEDICAL | | | | | | CENTER - | | | | | | LABORATORY | | + + + + + + + + | Specimen | + + | Blood | + + + + + + + | Performing | Address | City/State/Zipcode | Phone Number | | Organization | | | | + + + + + | [facility] | [address] | [place] | [phone] | | [facility] | | [address] | | | - LABORATORY | | | | + + + + + from Last 3 Months Insurance + +--------+ +--------+ +---------+--------+ | Payer | Benefi | Subscriber | Effect | Phone | Address | Type | | | t Plan | ID | aranza | | | | | | / | | Dates | | | | | | Group | | | | | | + +--------+ +--------+ +---------+--------+ | MEDICARE | MEDICA | [id number] | 09/24/19 | [phone] | | Medica | | | RE | | 05-Pre | 5 | | re | | | PART A | | sent | | | | | | AND B | | | | | | + +--------+ +--------+ +---------+--------+ | [employer] | [employer] | [id number] | 07/06/ | [phone] | | Medica | | MEDICAID HMO [...] | + +--------+ +--------+ + + | Francine Covarrubias | Person | Self | [birth year] | [address] | | | al/Fam | | 1960 | [phone] | [place] [address] | | | myranda | | | 7 (Home) | | + +--------+ +--------+ + + Advance Directives Patient has advance care planning documents on file. For more information, please contact:[facility] [place] [address]
--- OUTSIDE RECORDS SUMMARY | ~2018-12-26 | XMS | Encounter Summary ---
Demographics + + + | Address | [address] | | | [place] [address] | + + + | Home Phone | | + + + | Preferred Language | Unknown | + + + | Marital Status | | + + + | [employer] Affiliation | 1038 | + + + | Race | Unknown | + + + | Ethnic Group | Unknown | + + + Author + + + | Author | [facility] | | | and Jitendra[facility] | + + + | Organization | [facility] | | | and Jitendraana [...] Team Providers + +------+ + | Care Theatrical Variety Agent Name | Role | Phone | + +------+ + | Howie Biswas MD | PCP | | + +------+ + Reason for Visit + + + | Reason | Comments | + + + | Jaw Swelling | | + + + Encounter Details +--------+ + + + + | Date | Type | Department | Care Team | Description | +--------+ + + + + | 11/24/ | Emergency | [facility] | Jadiel Hernandez | Abscess (Primary | | 2019 | | [facility] | MD [address] | Dx); Facial abscess | | | | CENTER [address] | [address] [facility] | | | | | [place] | [place] [address] | | | | | [address] | [phone] | | | | | [phone] | | | +--------+ + + + [...] + | Blood Pressure | 147/76 | 11/24/2018 2013 PDT | + + + + | Pulse | 48 | 11/24/20182011 PDT | + + + + | Temperature | 36 C (96.8 F) | 11/24/20181700 PDT | + + + + | Respiratory Rate | 16 | 11/24/20180 PDT | + + + + | [...] 11/24/20181700 PDT | + + + + documented in this encounter Discharge Instructions AttachmentsThe following attachments cannot be sent through Care Everywhere.Abscess, Incisi on And Drainage (Citizen [place])documented in this encounter Medications at Time of Discharge + + + +---------+ + + | Medication | Sig | Dispensed | Refills | Start | End Date | | | | | | Date | | + + + +---------+ + + | acetaminophen | Take 1,300 mg by | | 0 | | | | (TYLENOL 8 HOUR | mouth Daily as | | | | | | ARTHRITIS PAIN) 650 | needed for Pain. | | | | | | MG CR tablet | | | | | | + + + +---------+ + + | albuterol (PROAIR | Inhale 2 puffs into | | 0 | | | | HFA) 90 mcg/puff | the lungs every 4 | | | | | | inhaler | hours as needed for | | | | | | | Wheezing. | | | | | + + + +---------+ + + | albuterol 2.5 mg/3 | Take 2.5 mg by | | 0 | | | | mL nebulizer | nebulization every 4 | | | | | | solution | hours as needed for | | | | | | | Wheezing, Shortness | | | | | | | of Breath or | | | | | | | Increased Work of | | | | | | | Breathing. | | | | | + + + +---------+ + + | amLODIPine | Take 2.5 mg by mouth | | 0 | | | | (NORVASC) 2.5 mg | Daily. | | | | | | tablet | | | | | | + + + +---------+ + + | atorvaSTATin | Take 10 mg by mouth | | 0 | | | | (LIPITOR) 10 mg | nightly. | | | | | | tablet | | | | | | + + + +---------+ + + | calcium | Take 1 tablet by | | 0 | | | | citrate-vitamin D | mouth 2 times daily. | | | | | | (CALCITRATE PLUS D) | | | | | | | 315 mg-200 units per | | | | | | | tablet | | | | | | + + + +---------+ + + | cyclobenzaprine | Take 10 mg by mouth | | 0 | 04/08/20 | | | (FLEXERIL) 10 mg | 3 times daily. | | | 12 | | | tablet | | | | | | + + + +---------+ + + | gabapentin | Take 300 mg by mouth | | 0 | | | | (NEURONTIN) 300 mg | 3 times daily. | | | | | | capsule | | | | | | + + + +---------+ + + | | Take 1 capsule by | | 0 | | | | Glucosamine-Chondroi | mouth Daily. | | | | | | t-Vit C-Mn | | | | | | | (GLUCOSAMINE 1500 | | | | | | | COMPLEX) CAPS | | | | | | + + + +---------+ + + | ibuprofen | Take 600 mg by mouth | | 0 | | | | (ADVIL,MOTRIN) 600 | 3 times daily. | | | | | | MG tablet | | | | | | + + + +---------+ + + | nitroglycerin | Place 0.4 mg under | | 0 | 04/08/20 | | | (NITROSTAT) 0.4 mg | the tongue as | | | 12 | | | SL tablet | needed. | | | | | + + + +---------+ + + | pantoprazole | Take 40 mg by mouth | | 0 | | | | (PROTONIX) 40 mg | every morning | | | | | | tablet | (before breakfast). | | | | | + + + +---------+ + + | potassium chloride | Take 10 mEq by mouth | | 0 | | | | (KLOR-CON) 10 MEQ | 2 times daily. | | | | | | ER tablet | | | | | | + + + +---------+ + + | sertraline | 2 tablets daily | | 0 | 04/08/20 | | | (ZOLOFT) 100 mg | | | | 12 | | | tablet | | | | | | + + + +---------+ + + | cephalexin | Take 1 capsule by | 28 | 0 | 11/25/19 | | | (KEFLEX) 500 mg | mouth 4 times daily | capsule | | 19 | 9 | | capsule | for 7 days. | | | | | + + + +---------+ + + documented as of this encounter Plan of Treatment + +--------+ + + | Name | Priori | Associated Diagnoses | Date/Time | | | ty | | | + +--------+ + + | ED INFORMATION EXCHANGE | Routin | | 11/24/2018 18:10 PDT | | | e | | | + +--------+ + + documented as of this encounter Procedures + +--------+ [...] | | n - | | | 05/02/ | | | 2019 | | | 1811 | | | [...] | | | ON?05/ | | | | | | 9 | | | 16:49? | | | LAMMEY | | | , | | | FRANCINE | | | W?MRN: | | | | | | [id number] | | | [id number] | | | riteri | | | [...] | | | [facility] | | [facility] | | | al | | | Patien | | | t is | | | curren | | | tly | | | establ | | | ished | | | with | | | St | | | [facility] | | | y | | | [...] St | | | | | | [facility] | | | y | | | [...] | | | St. | | | [facility] | | | y | | | [...] | | | St[facility] | | | [facility] | | | y H. | | [...] | | | [facility] | | | [facility] | | | y H. | | [...] | | | [facility] | | | [facility] | | | y H. | | [...] | | | St. | | | [facility] | | | y H. | | [...] | | | ent/31 | | | [id number] | | | -[id number] | | | [id number] | | | [id number] | | | [id number] | | | 058c | | | [...] sera.co | | | m | +---+--------+ documented in this encounter Results Incision/Drainage (11/26/2018 1:35 PDT) + + [...] patient's prior history. Dictated and Signed by: Sada Titus MD Electronically signed: 11/24/2018 7:36 PM | | [...] | | + +---------+ + + Extra Green Top Tube (11/24/2018 [...] | + + + + + | [facility] | [address] | [place] | [phone] | | [facility] | | [address] | | | - LABORATORY | | | | + + + + + Extra Lavender Top Tube (11/24/2018 18:56 PDT) + +-------+ + + + | Component | Value | Ref Range | Performed | Pathologist | | | | | At | Signature | + +-------+ + + + | Extra | Done | | [facility] | | | Lavender | | | [facility] | | | Top Tube | | [...] | + + + + + | [facility] | [address] | [place] | [phone] | | [facility] | | [address] | | | - LABORATORY | | | | + + + + + Comprehensive Metabolic Panel (11/24/2018 18:56 PDT) + + + + + + | Component | Value | Ref Range | Performed | Pathologist | | | | | At | Signature | + + + + + + | Na | 135 (L) | 136 - 145 | [facility] | | | | | mmol/L | [...] | | | | mg/dL | [facility] | | | | | | MEDICAL | | | | | | CENTER - | | | | | | LABORATORY | | + + + + + + | eGFR if not | 47 (L)Comment: | >=60 | [facility] | | | | GLOMERULAR FILTRATION | mL/min/1.73m2 | [facility] | | | [place] | RATE,ESTIMATED mL/min | | MEDICAL | | | | /1.68k9Ughn than 60 | | CENTER - | [...] | 9.3 | 8.7 - 10.4 | [facility] | | | | | mg/dL | [...] | + + + + + | [facility] | [address] | [place] | [phone] | | [facility] | | [address] | | | - LABORATORY | | [...] [facility] | | | | | | [facility] | | | | | | MEDICAL | | | | | | CENTER - | | | | | | LABORATORY | | + + + + + + | RBC | 4.14 (L) | 4.30 - 5.70 | [facility] | | | | | M/uL | [facility] | | | | | | [...] | | Neutrophils | | | [facility] | | | | [...] | | | Eosinophils | | | [facility] | | [...] | Lymphocytes | | K/uL | [facility] | | | | | | MEDICAL | | | | | | CENTER - | | | | | | LABORATORY | | + + + + + + | Absolute | 0.32 | 0.00 - 1.00 | [facility] | | | Monocytes | | K/uL | [facility] | | | | | | MEDICAL | | | | | | CENTER - | | | | | | LABORATORY | | + + + + + + | Absolute | 0.11 | 0.00 - 0.40 | [facility] | | | Eosinophils | | K/uL | [facility] | | | | | | MEDICAL | | | | | | CENTER - | | | | | | LABORATORY | | + + + + + + | Absolute | 0.02 | 0.00 - 0.10 | [facility] | | | Basophils | | K/uL | [facility] | [...] ST[facility] | [address] | [place], [place] | [phone] | | [facility] | | [address] | | | - LABORATORY | | | | + + + + + documented in this encounter Visit Diagnoses + + | Diagnosis | + + | Abscess - Primary Cellulitis and abscess of unspecified site | + + | Facial abscess Cellulitis and abscess of face | + + documented in this encounter Administered Medications + +--------+ +--------+------+------+ | Medication Order | MAR | Action | Dose | Rate | Site | | | Action | Date | | | | + +--------+ +--------+------+------+ | fentaNYL (PF) injection 25 mcg | Given | 11/25/19 | 25 mcg | | | | 25 mcg, Intravenous, ONCE, Jocelyn | | 19 19:01 | | | | | 11/24/18 at 1840, For 1 dose | | PDT | | | | + +--------+ +--------+------+------+ +---+---+ | | | +---+---+ + +-------+ +--------+---+---+ | iohexol (OMNIPAQUE 350) 350 | Given | 11/25/19 | 75 mLs | | | | mg/mL injection 75 mL 75 mL, | | 19 19:09 | | | | | Intravenous, ONCE PRN, Other, | | PDT | | | | | Starting Jocelyn 11/24/18 at 1909, For | | | | | | | 1 dose, Cat Scanner | | | | | | + +-------+ +--------+---+---+ +---+---+ | | | +---+---+ + +-------+ +------+---+---+ | ondansetron (ZOFRAN) injection | Given | 11/25/19 | 4 mg | | | | 4 mg 4 mg, Intravenous, ONCE, | | 19 19:03 | | | | | Jocelyn 11/24/18 at 1840, For 1 dose | | PDT | | | | + +-------+ +------+---+---+ +---+---+ | | | +---+---+ + +---------+ +--------+-------+---+ | sodium chloride 0.9% (NS) bolus | New Bag | 11/25/19 | 1,000 | 1000 | | | 1,000 mL 1,000 mL, Intravenous, | | 19 18:53 | mLs | mL/hr | | | Administer over 1 Hours, ONCE, | | PDT | | | | | Jocelyn 11/24/18 at 1840, For 1 dose | | | | | | + +---------+ +--------+-------+---+ +---+---+ | | | +---+---+ documented in this encounter
--- OUTSIDE RECORDS SUMMARY | ~2018-12-26 | XMS | Encounter Summary ---
Demographics + + + | Address | [address] | | | [place] [address] | + + + | Home Phone | | + + + | Preferred Language | Unknown | + + + | Marital Status | | + + + | [employer]ar[employer] Affiliation | Unknown | + + + | Race | White | + + + | Ethnic Group | Not or | + + + Author + + + | Author | [facility] | + + + | Organization | [facility] | + + + | Address | Unknown | + + + | Phone | Unavailable | + + + Support + + + + + | Name | Relationship | Address | Phone | + + + + + | Shyanne Covarrubias | ECON | [address] | | | | | #[place] | | | | | [address] | | + + + + + Care Team Providers + +------+ + | Care Banjo Repairer Name | Role | Phone | + +------+ + | Kyaw Greene MD | PCP | | + +------+ + Encounter Details +--------+ + + + + | Date | Type | Department | Care Team | Description | +--------+ + + + + | 01/31/ | Document-Sc | UNKNOWN DEPARTMENT | Unknown . | | | 2015 | anned | [address] [facility] | | | | | | [facility] | | | | | | [place], [place] | | | | | | [address] | | | +--------+ + + + [...]
--- OUTSIDE RECORDS SUMMARY | ~2018-12-26 | XMS | Encounter Summary ---
Demographics + + + | Address | [address] | | | [place] [address] | + + + | Home Phone [...] | Author | [facility] [employer] | + + + | Organization | [facility] [employer] | + + + | Address [...] Team Providers + +------+ + | Care Accounts Receivable Coordinator Name | Role | Phone | + +------+ + | Landen Dc MD | PCP | | + +------+ + Reason for Referral MRI/CAT Scan (Routine) +--------+--------+ + + + + | Status | Reason | Specialty | Diagnoses / | Referred By | Referred To | | | | | Procedures | Contact | Contact | +--------+--------+ + + + + | Closed | | Radiology | Diagnoses | Rodriguez, | [facility] [address] | | | | | | Dann | [address] | | | | | Hypersensiti | Venu Sierra MD | [address] | | | | | vity | [address] | [place] | | | | | pneumonitis | [place]af[place] | [address] Phone: | | | | | ([facility]) | Zach E | [phone] | | | | | Interstitial | [place] | | | | | | lung | [address] | | | | | | disease | Phone: | | | | | | ([facility]) | [phone] | | | | | | Procedures | Fax: | | | | | | CT chest | [phone] | | | | | | high | | | | | | | resolution | | | +--------+--------+ + + + + Reason for Visit +--------+ + | Reason | Comments | +--------+ + | COPD | | +--------+ + Consult and Treat (Routine) + +--------+ + + + + | Status | Reason | Specialty | Diagnoses / | Referred By | Referred To | | | | | Procedures | Contact | Contact | + +--------+ + + + + | Authorized | | Pulmonary | Diagnoses | Zulay, | Rodriguez, | | | | Disease / | Chronic | Howie Orellana MD | Dann | | | | Pulmonology | obstructive | [address] | Venu Sierra MD | | | | | pulmonary | DILIP [address]END[address] | [address] | | | | | disease, | [place], | [address] | | | | | unspecified | [place] [address] | Zach E | | | | | (HCC) Other | Phone: | [place], [place] | | | | | emphysema | [phone] | [address] Phone: | | | | | (HCC) | Fax: | [phone] | | | | | Panlobular | [phone] | Fax: | | | | | emphysema | | [phone] | | | | | (HCC) | | | | | | | Interstitial | | | | | | | pulmonary | | | | | | | disease, | | | | | | | unspecified | | | | | | | (HCC) | | | | | | | Obstructive | | | | | | | sleep apnea | | | | | | | (adult) | | | | | | | (pediatric) | | | | | | | Pulmonary | | | | | | | fibrosis, | | | | | | | unspecified | | | | | | | (HCC) | | | + +--------+ + + + + Encounter Details +--------+---------+ + + + | Date | Type | Department | Care Team | Description | +--------+---------+ + + + | 12/01/ | Office | [facility] | Dann Frias | Interstitial lung | | 2019 | Visit | Pulmonology [address] | Venu Sierra MD [address] | disease (HCC) | | | | Zafar SANCHEZ | Zafar Serrano E | (Primary Dx); | | | | [place], [place] | [place] [address] | Personal history of | | | | [address] | [phone] | tobacco use, | | | | [phone] | | presenting hazards | | | | | | to health; | | | | | | Hypersensitivity | | | | | | pneumonitis (HCC); | | | | | | Clubbing of fingers | +--------+---------+ + + + Social History [...] + + + as of this encounter Last Filed Vital Signs + + + + | Vital Sign | Reading | Time Taken | + + + + | Blood Pressure | 100/59 | 12/01/2018 2:31 PM PDT | + + + + | Pulse | 59 | 12/01/2018 2:31 PM PDT | + + + + | Temperature | 37.3 C (99.2 F) | 12/01/2018 2:31 PM PDT | + + + + | Respiratory Rate | - | - | + + + + | Oxygen Saturation | 93% | 12/01/2018 2:31 PM PDT | + + + + | Inhaled Oxygen | - | - | | Concentration | | | + + + + | Weight | 71.2 kg (157 lb) | 12/01/2018 2:31 PM PDT | + + + + | Height | 177.8 cm (5' 10") | 12/01/2018 2:31 PM PDT | + + + + | Body Mass Index | 22.53 | 12/01/2018 2:31 PM PDT | + + + + in this encounter Progress Notes Dann Frias MD - 12/01/2018 2:30 PM PDTFormatting of this note may be diffe rent from the original. Patient: Onesimo Covarrubias 58 y.o. 1960 Referred from: Landen Dc MD [address] [address] Referral reason: Chief Complaint Patient presents with COPD HPI: Onesimo Covarrubias is a 58 y/o male referred to me for COPD. He is a current smoker at 1/2 ppd s jonah age 9. He had quit in between for 7 years. Back in 2014, he lived in [place] and was having frequent pneumonias eventually ending up intubated. He underwent a lung biopsy and apparently showed hypersensitivity pneumonitis. This was attributed to black mold and also a cockatiel they had. He was on prednisone for 1 year but has since been weaned off. Since then he has had waxing and waning shortness of breath with exertion especially when walking up stairs, doing house work, or walking 50 feet. He also has a chronic productive cough wi th whitish phlegm usually in the morning. He denies any fever or chills. He does have inte rmittent audible wheeze. He uses albuterol as needed. More recently he was found to have a left jaw abscess which was drained. He has had some instrumentation in that area in the [facility] already by [facility]. Currently he has 1 dog and 3 cats. He is disabled. He used to work [employer]. He has a history of DANUTA and is on CPAP. Review of Systems Constitutional: Negative. Negative for chills, diaphoresis, fever, malaise/fatigue and braeden ght loss. HENT: Negative. Negative for congestion and sore throat. Eyes: Negative. Respiratory: Positive for cough, sputum production, shortness of breath and wheezing. Negat aranza for hemoptysis. Cardiovascular: Negative for chest pain, palpitations, orthopnea, leg swelling and PND. Gastrointestinal: Negative for abdominal pain, constipation, diarrhea, nausea and vomiting. Genitourinary: Negative for dysuria. Musculoskeletal: Negative for joint pain. Skin: Negative. Negative for rash. Neurological: Negative for dizziness and focal weakness. Endo/Heme/Allergies: Negative for environmental allergies. All other systems reviewed and are negative. Past Medical History Diagnosis Date Chronic back pain Clubbing of fingers 12/01/2018 COPD (chronic obstructive pulmonary disease) ([facility]) Coronary artery disease Hypersensitivity pneumonitis ([facility]) 12/01/2018 Reflux Past Surgical History Procedure Laterality Date ARTHROSCOPY SHOULDER W/ OPEN ROTATOR CUFF REPAIR BACK SURGERY CHOLECYSTECTOMY Family History Problem Relation Age of Onset Cancer Father Social History Social History Marital status: Spouse name: N/A Number of children: N/A Years of education: N/A Occupational History Not on file. Social History Main Topics Smoking status: Former Smoker Packs/day: 0.25 Years: 30.00 Smokeless tobacco: Never Used Alcohol use No Drug use: Yes Types: Marijuana Sexual activity: Not on file Other Topics Concern Not on file Social History Narrative No narrative on file Outpatient Encounter Prescriptions as of 12/01/2018 Medication Sig Dispense Refill atorvastatin (LIPITOR) 10 MG tablet Take 10 mg by mouth nightly. celecoxib (CELEBREX) 100 MG capsule Take 100 mg by mouth 2 (two) times daily. cephALEXin (KEFLEX) 500 MG capsule Take 500 mg by mouth 4 (four) times daily. cyclobenzaprine (FLEXERIL) 5 MG tablet Take 5 mg by mouth 2 (two) times daily. gabapentin (NEURONTIN) 800 MG tablet Take 800 mg by mouth 3 (three) times daily. pantoprazole (PROTONIX) 40 MG tablet Take 40 mg by mouth every morning before breakfast . sertraline (ZOLOFT) 50 MG tablet Take 50 mg by mouth daily. amLODIPine (NORVASC) 2.5 MG tablet Take 2.5 mg by mouth daily. potassium chloride (KLOR-CON) 20 MEQ packet Take 20 mEq by mouth 2 (two) times daily. varenicline (CHANTIX SKIP) 0.5 MG X 11 & 1 MG X 42 tablet Take one 0.5mg tablet by mouth once daily for 3 days, then increase to one 0.5mg tablet twice daily for 3 days, then incre ase to one 1mg tablet twice daily. 53 tablet 0 No facility-administered encounter medications on file as of 12/01/2018. Vitals: 12/01/18 1431 BP: 100/59 BP Location: Left upper arm Patient Position: Sitting Pulse: 59 Temp: 99.2 F (37.3 C) TempSrc: Oral SpO2: 93% Weight: 71.2 kg (157 lb) Height: 1.778 m (5' 10") Physical Exam Constitutional: He appears well-developed and well-nourished. No distress. HENT: Head: Normocephalic. Mouth/Throat: Oropharynx is clear and moist. No oropharyngeal exudate. Eyes: Conjunctivae are normal. No scleral icterus. Neck: No tracheal deviation present. Cardiovascular: Normal rate, regular rhythm and normal heart sounds. No murmur heard. Pulmonary/Chest: Effort normal. No accessory muscle usage or stridor. No tachypnea and no b radypnea. No respiratory distress. He has no decreased breath sounds. He has no wheezes. He has no rhonchi. He has rales. Bilateral inspiratory crackles with inspiratory squeaks Abdominal: Soft. He exhibits no distension. There is no tenderness. Musculoskeletal: He exhibits no edema. Lymphadenopathy: He has no cervical adenopathy. Neurological: He is alert. Skin: Skin is warm. He is not diaphoretic. No cyanosis. Nails show no clubbing. (+) digital clubbing Vitals reviewed. PFT: 04/26/18 FEV1/FVC 0.86 FEV1 2.83L/90% FVC 3.28L/82% TLC 5.01L/75% RV/TLC 0.36 DLCO 56% DL/VA 78% CXR: 03/02/18 Significant diffuse interstitial changes which have advanced since the prior study Assessment and Plan: A> 58M smoker with dyspnea, cough with crackles on exam with evidence of mild restriction f rom interstitial lung disease likely chronic hypersensitivity pneumonitis P> 1. Interstitial lung disease - I reviewed the patient's PFT reports and CXR findings. It is suggestive of a mild restri ctive process with CXR indicating the presence of interstitial lung disease. I do not see e vidence of obstructive lung disease or COPD based on his PFT. He does have inspiratory crac kles and inspiratory squeaks as well. He does have digital clubbing on exam - I have ordered a high resolution CT chest to further investigate this interstitial lung d isease. - potentially, this could be chronic hypersensitivity pneumonitis given his prior history. Because he smokes, it could also RB-ILD. - I will request records from his previous java software developer, Dr. Alvarez regarding his previous CT's and biopsies. - I will hold off on starting prednisone until we have further information. 2. Tobacco abuse - still smoking 1/2 ppd for the past 50 years. - I counseled him on the importance of smoking cessation. - I prescribed him chantix, he tolerated this 3 years ago. Advised he set a quit date and start chantix a week before. Return in about 6 weeks (around 01/12/2019). in this encounter Plan of Treatment +--------+---------+ + + + | Date | Type | Specialty | Care Team | Description | +--------+---------+ + + + | 01/06/ | Office | Pulmonology | Dann Frias | | | 2018 | Visit | | Venu Sierra MD [address] | | | | | | [address] | | | | | | [place] [address] | | | | | | [phone] | | | | | | | | +--------+---------+ + + + as of this encounter Results CT chest high resolution [...] + + | Sharif, Rad Results In 12/14/2018 8:[address] CHEST WITHOUT [...] | + + + + + | [facility] | [address] | [place] [address] | | + + + + + in this encounter Visit Diagnoses + + | Diagnosis | + + | Interstitial lung disease (HCC) - Primary | + + | Postinflammatory pulmonary fibrosis | + + | Personal history of tobacco use, presenting hazards to health | + + | Hypersensitivity pneumonitis (HCC) | + + | Unspecified allergic alveolitis and pneumonitis | + + | Clubbing of fingers | + +
--- OUTSIDE RECORDS SUMMARY | ~2018-12-26 | XMS | Clinical Summary ---
Demographics + + + | Address | [address] | | | [place] [address] | + + + | Home Phone | | + + + | Preferred Language | Unknown | + + + | Marital Status | | + + + | Yarsanism Affiliation | [id number] | + + + | Race | Unknown | + + + | Ethnic Group | Unknown | + + + Author + + + | Author | [facility] | + + + | Organization | [facility] | + + + | Address | Unknown | + + + | Phone | Unavailable | + + + Support + + +---------+ + | Name | Relationship | Address | Phone | + + +---------+ + | Shyanne Valdez | ECON | Unknown | | + + +---------+ + | Shae Alegria | ECON | Unknown | | + + +---------+ + Care Team Providers + +------+ + | Care Cake Wringer Name | Role | Phone | + [...] | + + + + + + Current Medications + + +--------+---------+------+------+-------+ | Prescription | Sig. | Disp. | Refills | Star | End | Statu | | | | | | t | Date | s | | | | | | Date | | | + + +--------+---------+------+------+-------+ | amLODIPine | Take 2.5 mg by mouth | | | | | Activ | | (NORVASC) 2.5 MG | daily. | | | | | e | | tablet | | | | | | | + + +--------+---------+------+------+-------+ | gabapentin | Take 800 mg by mouth | | | | | Activ | | (NEURONTIN) 800 MG | 3 (three) times | | | | | e | | tablet | daily. | | | | | | + + +--------+---------+------+------+-------+ | potassium chloride | Take 20 mEq by mouth | | | | | Activ | | (KLOR-CON) 20 MEQ | 2 (two) times | | | | | e | | packet | daily. | | | | | | + + +--------+---------+------+------+-------+ | sertraline | Take 50 mg by mouth | | | | | Activ | | (ZOLOFT) 50 MG | daily. | | | | | e | | tablet | | | | | | | + + +--------+---------+------+------+-------+ | pantoprazole | Take 40 mg by mouth | | | | | Activ | | (PROTONIX) 40 MG | every morning before | | | | | e | | tablet | breakfast. | | | | | | + + +--------+---------+------+------+-------+ | celecoxib | Take 100 mg by mouth | | | | | Activ | | (CELEBREX) 100 MG | 2 (two) times | | | | | e | | capsule | daily. | | | | | | + + +--------+---------+------+------+-------+ | atorvastatin | Take 10 mg by mouth | | | | | Activ | | (LIPITOR) 10 MG | nightly. | | | | | e | | tablet | | | | | | | + + +--------+---------+------+------+-------+ | cyclobenzaprine | Take 5 mg by mouth 2 | | | | | Activ | | (FLEXERIL) 5 MG | (two) times daily. | | | | | e | | tablet | | | | | | | + + +--------+---------+------+------+-------+ | cephALEXin | Take 500 mg by mouth | | | | | Activ | | (KEFLEX) 500 MG | 4 (four) times | | | | | e | | capsule | daily. | | | | | | + + +--------+---------+------+------+-------+ | varenicline | Take one 0.5mg | 53 | 0 | 05/0 | 08/0 | Activ | | (CHANTIX SKIP) 0.5 MG | tablet by mouth once | tablet | | 9/20 | 7/20 | e | | X 11 & 1 MG X 42 | daily for 3 days, | | | 19 | 19 | | | tabletIndications: | then increase to one | | | | | | | Personal history of | 0.5mg tablet twice | | | | | | | tobacco use, | daily for 3 days, | | | | | | | presenting hazards | then increase to one | | | | | | | to health | 1mg tablet twice | | | | | | | | daily. | | | | | | + + +--------+---------+------+------+-------+ Active Problems + + + | Problem | Noted Date | + + + | Personal history of tobacco use, presenting hazards to health | 12/01/2018 | + + + | Hypersensitivity pneumonitis (HCC) | 12/01/2018 | + + + | Interstitial lung disease (HCC) | 12/01/2018 | + + + | Clubbing of fingers | 12/01/2018 | + + + | Back pain, chronic | 12/01/2018 | + + + | Bronchiectasis without acute exacerbation (HCC) | 12/01/2018 | + + + + + | Overview: Overview: | | per outside record | + + + + + | Chronic cholecystitis | 12/01/2018 | + + + + + | Overview: Overview: | | per outside record | + + + + + | Chronic pain disorder | 12/01/2018 | + + + | History of recurrent pneumonia | 12/01/2018 | + + + + + | Overview: Overview: | | recurrent pneumonia multiple times, staph? per patient | | | | Dx Name changed by system update on 05/07/2017 | + + + + + | Hypertrophy of prostate without urinary obstruction and other | 12/01/2018 | | lower urinary tract symptoms (LUTS) | | + + + + + | Overview: Overview: | | per outside record | + + + + + | Hypoxemia | 12/01/2018 | + + + | Lumbago | 12/01/2018 | + + + + + | Overview: Overview: | | two laminectomies from old injury in 1999 | + + + + + | Other and unspecified hyperlipidemia | 12/01/2018 | + + + + + | Overview: Overview: | | per outside record | + + + + + | Other specified cardiac dysrhythmias | 12/01/2018 | + + + + + | Overview: Overview: | | per outside record | | | | IMO Problem List Replacement - 2016_Regulatory_1 | + + + + + | Sciatica | 12/01/2018 | + + + | Sleep apnea | 12/01/2018 | + + + + + | Overview: Overview: | | per sleep specialist on outside record | | | | Dx Name changed by system update on 05/07/2017 | + + Encounters +--------+ + + + + | Date | Type | Specialty | Care Team | Description | +--------+ + + + + | 12/22/ | Documentati | | Howie Lkahani DO | | | 2019 | on Only | | | | +--------+ + + + + | 12/12/ | Hospital | | Dann Frias | Hypersensitivity | | 2018 | Encounter | | Venu Sierra MD | pneumonitis (HCC); | | | | | | Interstitial lung | | | | | | disease (HCC) | +--------+ + + + + | 12/01/ | Office | | Dann Frias | Interstitial lung | | 2018 | Visit | | Venu Sierra MD | disease (HCC) | | | | | | (Primary Dx); | | | | | | Personal history of | | | | | | tobacco use, | | | | | | presenting hazards | | | | | | to health; | | | | | | Hypersensitivity | | | | | | pneumonitis (HCC); | | | | | | Clubbing of fingers | +--------+ + + + + | 12/01/ | Orders Only | | Zari Villagran, | | | 2018 | | | DRESSING ROOM PORTER | | +--------+ + + + + from Last 3 Months Immunizations + + + + | Name | Dates Previously Given | Next Due | + + + + | INFLUENZA PF, | 05/31/2017, 06/10/2016 | | | QUADRIVALENT | | | | (PED/ADOL/ADULT) | | | + + + + | Pneumococcal | 06/10/2016 | | | Conjugate 13-valent | | | + + + + | Td W/o Preservative | 03/26/2010 | | | (Adol/adult) | | | + + + + Family History + + +------+ + | Medical History | Relation | Name | Comments | + + +------+ + | Cancer | Father | | | + + +------+ + + +------+ + + | Relation | Name | Status | Comments | + +------+ + + | Father | | | | + +------+ + + | Mother | | Alive | | + +------+ + + Social History + +-------+ +--------+------+ [...] + + + | Respiratory Rate | 18 | 04/16/2016 1:55 PM PDT | + + + + [...] PM PDT | + + + + Plan of Treatment +--------+---------+ + + + | Date | Type | Specialty | Care Team | Description | +--------+---------+ + + + | 01/06/ | Office | | Dann Frias | | | 2019 | Visit | | Venu Sierra MD [address] | | | | | | [address] | | | | | | [place] [address] | | | | | | [phone] | | | | | | | | +--------+---------+ + + + + + + + + | Health Maintenance | Due Date | Last Done | Comments | + + + + + | Colon Cancer | | | | | Screening | 8 | | | | (Colonoscopy) | | | | + + + + + | Vaccine: Zoster (1 | | | | | of 2) | 8 | | | + + + + + | Vaccine: | | 03/26/2010 | | | Dtap/Tdap/Td (1 - | 0 | | | | Tdap) | | | | + + + + + | Statin Therapy | | | | | (optimal intensity) | 7 | | | + + + + + | Vaccine: Influenza | | 05/31/2017, 06/10/2016 | | | (Season Ended) | 9 | | | + + + + [...] | | + +--------+ + + + from Last [address] chest high resolution (12/12/2018 3:15 [...] | + + + + + | [facility] | [address] | [place] [address] | | + + + + + from Last 3 Months Insurance + +--------+ +------+-------+ + | Payer | Benefi | Subscriber | Type | Phone | Address | | | t Plan | ID | | | | | | / | | | | | | | Group | | | | | + +--------+ +------+-------+ + | MEDICARE | MEDICA | [id number] | | | [address] | | | RE | | | | [place] [address] | | | IP-OP | | | | | + +--------+ +------+-------+ + | MEDICAID | [employer]ER | [id number] | | | [address] | | | N | | | | [place] | | | [place] | | | | [address] | | | [employer] | | | | | + +--------+ +------+-------+ + + +--------+ +--------+ + + | Guarantor Name | Accoun | Relation to | Date | Phone | Billing Address | | | t Type | Patient | of | | | | | | | | | | + +--------+ +--------+ + + | FRANCINE ALEGRIA | Person | Self | [birth year] | Home: | [address] | | | al/Fam | | [phone] [place] [address] | | | myranda | | | [phone] | | + +--------+ +--------+ + +
[~2018-12-26 10:51] MED LIST changes: +CYCLOBENZAPRINE10 MG PO; +MELOXICAM7.5 MG PO; +NORCO 10-325 T1 EACH PO
--- OUTSIDE RECORDS SUMMARY | 2018-12-26 10:54 | XMS ---
PreManage Notification: FRANCINE ALEGRIA Security Aviation Operations Specialist Events No recent Security Events currently on file CRITERIA MET - [facility] - Has Care Guidelines - PDMP CARE PROVIDERS Flaquito [facility]onso Technology Intern/Funeral Pre Arrangement Counselor 11/19/2017-Current PHONE: [phone] Howie Biswas [facility] 04/04/2018-Current PHONE: Unknown Flaquito Alonso Primary Care 11/19/2017-Current PHONE: [phone] Alek has no Care Guidelines for this patient. Care History Medical/Surgical 04/04/2018 [facility] - Patient is currently established with [facility]. If patient is seen in the ED during business hours. Please contact CHWs at [facility]. Care Recommendation: This patient has had 5 [...] providing care. E.D. VISIT COUNT (12 MO.) [address] [facility] 4 ANALY Hernandez TOTAL 5 NOTE: Visits indicate total known visits. ED/UCC VISIT TRACKING (12 MO.) 12/26/2018 10:52 [facility]NALY [facility] [place] TYPE: Emergency COMPLAINT: - [facility] DIAGNOSES: - Cutaneous abscess, unspecified - Jaw Swelling - Cutaneous abscess of face - lump on jaw 11/15/2018 07:21 ANALY [facility] TYPE: Emergency COMPLAINT: - BACK PAIN/NO INJURY DIAGNOSES: - Nicotine dependence, cigarettes, uncomplicated - Allergy status to narcotic agent status - Major depressive disorder, single episode, unspecified - Other intermediate card tender (current) drug therapy - Chronic obstructive pulmonary disease, unspecified - Essential (primary) hypertension - Pain in right hip 04/03/2018 09:24 ANALY [place] TYPE: Emergency COMPLAINT: - JAW PAIN/NO INJURY DIAGNOSES: - Essential (primary) hypertension - Other alf (current) drug therapy - Allergy status to other drugs, medicaments and biological substances status - Other specified disorders of teeth and supporting structures - Personal history of nicotine dependence 02/25/2018 18:[address] [facility] [place] TYPE: Emergency COMPLAINT: - POSS INFECTION DIAGNOSES: - Periapical abscess without sinus - Localized swelling, mass and lump, head - Nicotine dependence, unspecified, uncomplicated - Essential (primary) hypertension - Allergy status to other drugs, medicaments and biological substances status - Other alf (current) drug therapy - Major depressive disorder, single episode, unspecified INPATIENT VISIT TRACKING (12 MO.) No inpatient visits to display in this time frame [id number]
[2018-12-26] MEDS ORDERED: OXYCODONE-ACET1 EAC3 PO (11:12)
[2018-12-26] MEDS ORDERED: PERCOCET 10-321 EACH PO (11:53)
== END 2018-12-26 12:08 | disposition home or self-care (01) ==
LOC: ED 10:51
DX: G89.29 Other chronic pain (principal); M54.5 Low back pain; I10 Essential (primary) hypertension; J44.9 Chronic obstructive pulmonary disease, unspecified; F32.9 Major depressive disorder, single episode, unspecified; Z79.899 Other long term (current) drug therapy; Z88.5 Allergy status to narcotic agent
CPT/HCPCS: 96372; 99283-25; J1885

== ENCOUNTER 2020-12-03 03:22 | Emergency (ER) | payer MEDICARE, OTHER ==
[~2020-12-03] VITALS: Ht 177.8 cm; Wt 77.1 kg
[~2020-12-03 03:22] MED LIST changes: +OXYCODONE-ACET1 EAC3 PO; +PERCOCET 10-321 EACH PO; -SERTRALINE HCL100 MG PO; +ZOLOFT100 MG PO
--- OUTSIDE RECORDS SUMMARY | 2020-12-03 03:24 | XMS ---
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 Care History Medical/Surgical 01/05/2019 [facility] Care Recommendation: - USE EXTREME CAUTION IN GIVING NARCOTICS TO THIS PATIENT. - Avoid Discharge Narcotic prescriptions if at all possible. Physician discretion. 04/04/2018 [facility] - Patient is currently established with [facility]. If patient is seen in the ED during business hours. Please contact CHWs at [facility]. Care Recommendation: This patient has had 5 or more Emergency Department visits in the last 12 months.\T\nbsp; Patient requires education on the scope and purpose of the ED as an acute care provider not a Primary Care Provider and should not be utilized for chronic conditions.\T\nbsp; These are guidelines and the provider should exercise clinical judgment when providing care. Beto VISIT COUNT (12 MO.) 2 [facility] 1 ANALY Hernandez TOTAL 3 NOTE: Visits indicate total known visits. ED/UCC VISIT TRACKING (12 MO.) 12/03/2020 03:22 [facility] [place] TYPE: Emergency COMPLAINT: - DIFFICULTY BREATHING 10[facility]13[facility]2020 12:[facility] [place] [facility] DIAGNOSES: - abdominal pain - Diverticulitis of large intestine with perforation and abscess without bleeding - Chronic obstructive pulmonary disease, unspecified - Constipation 05/11/2020 11:56 [facility] [place] [facility] DIAGNOSES: - sob tent - Shortness of Breath - Chronic obstructive pulmonary disease with (acute) exacerbation - Bronchitis, not specified as acute or chronic INPATIENT VISIT TRACKING (12 MO.) 10/13/2020 12:35 [facility] [place] [facility] DIAGNOSES: - Ulcer of anus and rectum - Diverticulitis of large intestine with perforation and abscess without bleeding - Other peritonitis - Chronic obstructive pulmonary disease, unspecified - Disruption of external operation (surgical) wound, not elsewhere classified, initial encounter [email or web address]
[2020-12-03] MEDS ORDERED: SYMBICORT 16010.2 GM INH (03:58)
[2020-12-03] MEDS ORDERED: OXYCODONE HCL5 MG PO (03:58)
[2020-12-03] MEDS ORDERED: ATORVASTATIN CA20 MG PO (03:59)
[2020-12-03] MEDS ORDERED: CELECOXIB200 MG PO (03:59)
[2020-12-03] MEDS ORDERED: PREDNISONE5 MG PO (03:59)
[2020-12-03] MEDS ORDERED: ALBUTEROL2.5 MG/3 M INH (04:01)
--- NOTE | 2020-12-04 13:50 | EKG ---
[facility] [address] [facility] [place] [address] Signed Sinus tachycardia with occasional premature ventricular complexes Otherwise normal ECG No previous ECGs available Confirmed by ELLEN ERWIN DO ([id number]) on 12/04/2020 1:49:49 PM Electronically Signed By: ELLEN ERWIN DO 12/04/20 1350 PATIENT NAME: FRANCINE ALEGRIA Electrocardiogram DATE OF : 56 PHYSICIAN: ELLEN ERWIN DO REPORT #: [id number] REPORT IS CONFIDENTIAL AND NOT TO BE RELEASED WITHOUT AUTHORIZATION
== END 2020-12-03 06:20 | disposition short-term general hospital (02) ==
LOC: ED 03:22
DX: J96.90 Respiratory failure, unspecified, unspecified whether with hypoxia or hypercapnia (principal); Z20.822 Contact with and (suspected) exposure to COVID-19; I10 Essential (primary) hypertension; J44.9 Chronic obstructive pulmonary disease, unspecified; Z88.8 Allergy status to other drugs, medicaments and biological substances; Z79.899 Other long term (current) drug therapy; Z79.52 Long term (current) use of systemic steroids
CPT/HCPCS: 31500; 43752; 71045; 80053; 81001; 82803; 83735; 83880; 84484; 85025; 93005; 93010; 94002; 94660; 99285-25; C9803; J0171; J0330; J0696; J1940; J2250; J2704; J2930; J3010; J7030; U0003

== ENCOUNTER 2020-12-26 07:27 | Emergency (ER) | payer MEDICARE, OTHER ==
[~2020-12-26] VITALS: Ht 177.8 cm; Wt 77.1 kg
[~2020-12-26 07:27] MED LIST changes: +ALBUTEROL2.5 MG/3 M INH; +ATORVASTATIN CA20 MG PO; +CELECOXIB200 MG PO; +OXYCODONE HCL5 MG PO; +PREDNISONE5 MG PO; +SYMBICORT 16010.2 GM INH
--- OUTSIDE RECORDS SUMMARY | 2020-12-26 07:30 | XMS ---
PreManage Notification: FRANCINE ALEGRIA Security Calculation Reviewer Events No recent Security Events currently on file CRITERIA MET - History of Sepsis Dx - PDMP - [facility] - 2 Visits in 30 Days CARE PROVIDERS Howie Biswas [facility] 04/04/2018-Current PHONE: [phone] Josefa Leblanc Word Processing Supervisor/Cd Mixer Helper 10/24/2020-Current PHONE: [phone] Alek has no Care Guidelines for this patient. Care History Medical/Surgical 01/05/2019 [facility] Care Recommendation: - USE EXTREME CAUTION IN GIVING NARCOTICS TO THIS PATIENT. - Avoid Discharge Narcotic prescriptions if at all possible. Physician discretion. 04/04/2018 [facility] - Patient is currently established with [facility]. If patient is seen in the ED during business hours. Please contact CHWs at [facility]. Care Recommendation: This patient has had 5 [...] care. Beto VISIT COUNT (12 MO.) 2 [facility] 2 ANALY Hernandez TOTAL 4 NOTE: Visits indicate total known visits. 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) drug therapy - Shortness of breath - long term (current) use of systemic steroids 10/13/2020 12:35 [facility] Malcolm CARRANZA TYPE: Emergency DIAGNOSES: - abdominal pain - Diverticulitis of large intestine with perforation and abscess without bleeding - Chronic obstructive pulmonary disease, unspecified - Constipation [facility] DIAGNOSES: - sob tent - Shortness of Breath - Chronic obstructive pulmonary disease with (acute) exacerbation - Bronchitis, not specified as acute or chronic INPATIENT VISIT TRACKING (12 MO.) 12/03/2020 07:28 [facility] TERE Uriarte TYPE: Surgical Services DIAGNOSES: - 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 - RESPIRATORY FAILURE - Interstitial pulmonary disease, unspecified - Acute and chronic respiratory failure, unspecified whether with hypoxia or hypercapnia - Sepsis, unspecified organism - Severe sepsis with septic shock - Acute and chronic respiratory failure with hypoxia - Acute and chronic respiratory failure with hypercapnia - Chronic obstructive pulmonary disease, unspecified - Pneumonia due to Pseudomonas - Pulmonary hypertension, unspecified - Unspecified severe protein-calorie malnutrition 10/13/2020 12:35 [facility] DIAGNOSES: - Ulcer of anus and rectum - Diverticulitis of large intestine with perforation and abscess without bleeding - Other peritonitis - Chronic obstructive pulmonary disease, unspecified - Disruption of external operation (surgical) wound, not elsewhere classified, initial encounter [email or web address]
[2020-12-26] MEDS ORDERED: FINASTERIDE5 MG PO (07:49)
[2020-12-26] MEDS ORDERED: FUROSEMIDE20 MG PO (07:49)
[2020-12-26] MEDS ORDERED: POTASSIUM CHLO20 MEQ PO (07:51)
[2020-12-26] MEDS ORDERED: DOXYCYCLINE HY100 MG PO (11:58)
--- NOTE | 2020-12-27 07:07 | EKG ---
[facility] [address] [place] [address] Signed Sinus tachycardia Left atrial enlargement Borderline ECG When compared with ECG of 03-DEC-2020 03:46, premature ventricular complexes are no longer present ST no longer elevated in Anterior leads Nonspecific T wave abnormality, improved in Inferior leads Confirmed by DEWAYNE GARCIA MD ([id number]) on 12/27/2020 7:07:11 AM Electronically Signed By: DEWAYNE GARCIA MD 12/27/20 0707 PATIENT NAME: FRANCINE ALEGRIA Electrocardiogram DATE OF : 56 PHYSICIAN: DEWAYNE GARCIA MD REPORT #: [id number] REPORT IS CONFIDENTIAL AND NOT TO BE RELEASED WITHOUT AUTHORIZATION
== END 2020-12-26 12:16 | disposition home or self-care (01) ==
LOC: ED 07:27
DX: J40 Bronchitis, not specified as acute or chronic (principal); Z20.822 Contact with and (suspected) exposure to COVID-19; J44.9 Chronic obstructive pulmonary disease, unspecified; I12.0 Hypertensive chronic kidney disease with stage 5 chronic kidney disease or end stage renal disease; E78.5 Hyperlipidemia, unspecified; N18.30 Chronic kidney disease, stage 3 unspecified; Z91.040 Latex allergy status; Z88.8 Allergy status to other drugs, medicaments and biological substances; Z79.899 Other long term (current) drug therapy; Z79.52 Long term (current) use of systemic steroids
CPT/HCPCS: 71045; 71260; 80053; 83735; 83880; 84484; 85025; 93005; 93010; 94640; 99285-25; C9803; J1100; J3475; Q9967; U0003

== ENCOUNTER 2020-12-28 18:00 | Inpatient (IN) | payer MEDICARE, OTHER ==
[~2020-12-28] VITALS: Ht 177.8 cm; Wt 77.1 kg
[~2020-12-28 18:00] MED LIST changes: +DOXYCYCLINE HY100 MG PO; +FINASTERIDE5 MG PO; +FUROSEMIDE20 MG PO; +POTASSIUM CHLO20 MEQ PO
--- OUTSIDE RECORDS SUMMARY | 2020-12-28 18:02 | XMS ---
PreManage Notification: FRANCINE ALEGRIA Security Manager Of Training Events No recent Security Events currently on file CRITERIA MET - History of Sepsis Dx - PDMP - [facility] - 2 Visits in 30 Days CARE PROVIDERS Howie Biswas [facility] 04/04/2018-Current PHONE: [phone] Josefa Leblanc Ride Mechanic/Hospice Admitting Clerk 10/24/2020-Current PHONE: [phone] Alek has no Care Guidelines for this patient. Care History Medical/Surgical 01/05/2019 [facility] Care Recommendation: - USE EXTREME CAUTION IN GIVING NARCOTICS TO THIS PATIENT. - Avoid Discharge Narcotic prescriptions if at all possible. Physician discretion. 04/04/2018 [facility] - Patient is currently established with [facility]. If patient is seen in the ED during business hours. Please contact CHWs at [facility]. Care Recommendation: This patient has had 5 [...] care. Beto VISIT COUNT (12 MO.) 2 [facility] 3 ANALY Hernandez TOTAL 5 NOTE: Visits indicate total known visits. ED/UCC VISIT TRACKING (12 MO.) 12/28/2020 18:00 [facility] [place] TYPE: Emergency COMPLAINT: - SOB 12/26/2020 07:28 ANALY Corrales TYPE: Emergency COMPLAINT: - CHEST PAIN, SOB 12/03/2020 03:22 ANALY Corrales TYPE: Emergency COMPLAINT: - DIFFICULTY BREATHING DIAGNOSES: - Essential (primary) hypertension - Chronic obstructive pulmonary disease, unspecified - Allergy status to other drugs, medicaments and biological substances - Respiratory failure, unspecified, unspecified whether with hypoxia or hypercapnia - Other usp (current) drug therapy - Shortness of breath - FPC (current) use of systemic steroids [facility] DIAGNOSES: - abdominal pain - Diverticulitis of large intestine with perforation and abscess without bleeding - Chronic obstructive pulmonary disease, unspecified - Constipation [facility]2020 [facility] DIAGNOSES: - sob tent - Shortness of Breath - Chronic obstructive pulmonary disease with (acute) exacerbation - Bronchitis, not specified as acute or chronic INPATIENT VISIT TRACKING (12 MO.) 12/03/2020 07:28 [facility] TERE Uriarte TYPE: Surgical Services DIAGNOSES: [...] - Unspecified severe protein-calorie malnutrition 10/13/2020 12:35 [facility] CARRANZA TYPE: Surgical Services DIAGNOSES: - Ulcer of anus and rectum - Diverticulitis of large intestine with perforation and abscess without bleeding - Other peritonitis - Chronic obstructive pulmonary disease, unspecified - Disruption of external operation (surgical) wound, not elsewhere classified, initial encounter [email or web address]
--- NOTE | 2020-12-28 22:13 | NUR ---
2139 PATIENT ARRIVED TO THE UNIT VIA STRETCHER WITH ED NURSE AND RT. PATIENT MOVED TO BED WITH FULL ASSIST. PATIENT IS ALERT. ON BIPAP 16/8 WITH Fi02 50% Fi02. RR 38. PATIENT APPEARS LABORED WITH ABDOMINAL BREATHING AND RETRACTIONS. PRN MORPHINE PROVIDED, PATIENT REPORTS ANXIETY AND CHEST PAIN. BOTH IMPROVED WITH 4MG MORHPINE. PATIENT USED URNAL TO VOID. MIDLINE INCISION NOTED ON ABD WHICH IS COVERED AND DRESSING CDI. OSTOMY DRESSING INTACT, STOMA APPEARS WNL. IV ABX STARTED PER ORDER. PATIENT'S AT BEDSIDE.
--- NOTE | 2020-12-28 22:30 | NUR ---
PATIENT CONTINUES TO BE ANXIOUS AND IS REQUESTING MORE VALIUM WHICH HE RECEIVED IN THE ED. PATIENT'S ALSO REQUEST THIS, SAYING THAT "ATIVAN DOESN'T WORK BUT THAT VLIUM THEY GAVE HIM REALLY HELPED". PATIENT RR 38. O2 SATS 97% ON 50% Fi02 WITH BIPAP. MD NOTIFIED. VERBAL ORDERS RECEIVED AND VERIFIED.
--- NOTE | 2020-12-28 22:45 | NUR ---
IV ABX INFUSING PER ORDER, SITE WNL. PATIENT CONTINUNES TO BE ANXIOUS. 2MG VALIUM PROVIDED. PATIENT CONTINUES TO WEAR THE BIPAP. RR 30-40. HOB ELEVATED. AT BEDSIDE. MIDLINE SURGICAL SITE NOTED, DRESSING PULLED BACK SLIGHTLY. WOUND IS COVERED GAUZE. REPORTS THE ORDER HAS BEEN FOR DAILY DRESSING CHANGES WITH "WET TO DRY" DRESSINGS. WOUND BED IS MOIST IN THE MIDDLE WITH SCANT YELLOW DRAINAGE NOTED AND A QUARTER SIZE AREA OF SLOUGH TISSUE. PATIENT MORE CALM AFTER VALIUM AND IS RESTING WITH EYES CLOSED.
--- NOTE | 2020-12-29 | NUR ---
PATIENT BECOMES VERY ANXIOUS WHEN WOKEN UP. REQUEST PRN MORPHINE FOR PATIENT AND HE AGREES. TOLERATING BIPAP WELL. RR 32. RT IN ROOM FOR NEB TREATMENT. ASSISTED PATIENT TO USE THE URNAL, WHICH HE WAS UNABLE TO VOID AT THAT TIME. LUNG SOUNDS ARE TIGHT IN THE UPPERS AND COARSE IN DANIEL LOWER LOBES. PRN MORPHINE PROVIDED FOR SOB. VS STABLE.
--- NOTE | 2020-12-29 02:00 | NUR ---
PATIENT REQUESTING VALIUM. STATES "HE WOKE UP SCARED AND JUST HASN'T BEEN ABLE TO CALM DOWN". PATIENT RR 42. O2 SATS 97% ON 50% Fi02 WITH THE BIPAP. PRN VALIUM PROVIDED. PATIENT WAS VISIBLY MORE RESTFUL AND CLOSED HIS EYES WITHIN MINUTES OF DRY CELL TESTER. ALLOWED PATIENT TO REST. RR IMPROVED TO 32.
--- NOTE | 2020-12-29 03:00 | NUR ---
PATIENT REPORTS THAT HIS LUNGS ARE PAINFUL. PATIENT HOLDING HIS CHEST. BIPAP REMOVED FOR PATIENT TO HAVE SIPS OF WATER. LP BALM APPLIED. PATIENT STATES HIS LUNGS FEEL "TIGHT". PRN MORPHINE REQUESTED AND PROVIDED PER ORDERS. BIPAP MASK BACK IN PLACE. PATIENT ABLE TO HOLD THE URNAL TO VOID WHILE IN BED. 100 MLS URINE NOTED. PATIENT DENIED FURTHER NEEDS.
--- NOTE | 2020-12-29 04:30 | NUR ---
PATIENT APPEARS TO BE TOLERATING BIPAP WELL. RR 28. HOB ELEVATED. PATIENT'S EYES ARE CLOSED. ALLOW PATIENT TO REST.
--- NOTE | 2020-12-29 06:00 | NUR ---
PATIENT REQUESTING TO BE OFF BIPAP. TRANSITIONED TO 6L NC. PATIENT TOELRATED WELL. PATIENT HAVING SIPS OF WATER AND TALKING IN FULL SENTANCES. LABS DRAWN, 2ND IV SITE ESTABLISHED. PATIENT REPORTS FEELING MUCH BETTER THIS MORNING. RR 26. ALLOWED PATIENT TO REST. AT BEDSIDE.
[2020-12-29] MEDS ORDERED: DOXYCYCLINE HY100 MG PO (07:08)
[2020-12-29] MEDS ORDERED: FOLIC ACID1 MG PO (07:10)
--- NOTE | 2020-12-29 07:41 | NUR ---
REPORT RECIEVED. PATIENT IS ASLEEP, NO DISTRESS NOTED. ON 6 L NC.
--- NOTE | 2020-12-29 08:00 | NUR ---
AWAKE ANE IS VERY ANXIOUS.
--- NOTE | 2020-12-29 08:11 | NUR ---
VALIUM 2 MG IV GIVEN. BIPAP APPLIED. ASSESSMENT DONE. IV ABX INFUSING, LUNGS DIMINISHED. OSTOMY BAG EMPTIED FOR MOD AMOUNT OF SEMI LIQUID STOOL.
--- NOTE | 2020-12-29 10:00 | NUR ---
VISTARIL 75 MG PO GIVEN FOR ANXIETY A LONG WITH OTHER ROUTINE MEDICATIONS.
--- NOTE | 2020-12-29 10:30 | NUR ---
REQUESTING FOOD. EARLY LUNCH ORDERED.
--- NOTE | 2020-12-29 11:00 | NUR ---
SINCE VISTARIL 75 MG GIVEN, PATIENT HAS BEEN VERY DROWSY, WILL NOD OFF TO SLEEP THEN JERK AND IS ANXIOUS UPON AWAKING. ENC PATIENT TO STAY CALM. IF PATIENT NEEDS VISTARIL AGAIN, WILL GIVE LOWER DOSE. HOB ELEVATED.
--- NOTE | 2020-12-29 11:30 | NUR ---
TOOK FOOD WELL. PATIENT IN ROOM.
--- NOTE | 2020-12-29 12:00 | NUR ---
WOKE, ANXIOUS, STATES HE HIS CHEST FEELS TIGHT. RT NOTIFIED, NEB TREATMENT TO BE GIVEN. ASSESSMENT DONE.
--- NOTE | 2020-12-29 13:30 | NUR ---
WET TO DRY DRESSING TO ABD INCISION CHANGED. OSTOMY BAG CHANGED BY PATIENT WITH ASSIST OF RN. PATIENT TOLERATED WELL. LINENS CHANGED AND MODIFIED SPONGE BATH GIVEN. ALLEVYN DRESSING TO COCCYX REMAINS INTACT. O2 SATS DONE TO 84 WITH EXERTION. LATE LUNCH ORDERED. PATIENT HAS BEEN ON O2 AT 6 LNC. BIPAP, 40% FIO2 16/8 USED PRN. PATIENT PREFERS NC OVER BIPAP.
--- NOTE | 2020-12-29 15:00 | NUR ---
TAKING LATE LUNCH. HAS BEEN ON O2 AT 6L NC. MORE ALERT THIS AFTERNOON. PATIENT REMAINS IN ROOM.
--- NOTE | 2020-12-29 16:00 | NUR ---
RESTING, ASSESSMENT UNCHANGED.
--- NOTE | 2020-12-29 17:00 | NUR ---
HAS BEEN SLEEPING, WILL AWAKEN ABRUPTLY AT TIMES BECOME SOMEWHAT ANXIOUS THEN CALM DOWN. TALKED WITH PATIENT AND PATIENT ABOUT THIS. BOTH AGREE NO FUTHER ANXIETY MEDICATION NEEDED AT THIS TIME.
--- NOTE | 2020-12-29 18:30 | NUR ---
SITTING UP IN BED FOR DINNER. HAS HAD GOOD AFTERMOON. NO CHANGES.
--- NOTE | 2020-12-29 19:30 | NUR ---
SHIFT REPORT RECIEVED. PATIENT RESTING IN BED. REPORTS FEELING WELL. TOLERATING NC AT 6L. DENIES NEEDS AT THIS TIME.
--- NOTE | 2020-12-29 20:12 | EKG ---
[facility] [address] [place] [address] Signed Sinus tachycardia Left atrial enlargement T wave abnormality, consider anterior ischemia Abnormal ECG When compared with ECG of 26-DEC-2020 07:28, T wave inversion more evident in Anterior leads Confirmed by LOS MAXWELL MD ([id number]) on 12/29/2020 8:12:08 PM Electronically Signed By: LOS MAXWELL MD 12/29/202011 PATIENT NAME: FRANCINE ALEGRIA Electrocardiogram DATE OF : 56 PHYSICIAN: LOS MAXWELL MD REPORT #: [id number] REPORT IS CONFIDENTIAL AND NOT TO BE RELEASED WITHOUT AUTHORIZATION
--- NOTE | 2020-12-29 20:30 | NUR ---
PATIENT READY FOR BIPAP AND NEB TREATMENT. RT IN ROOM.
--- NOTE | 2020-12-29 21:00 | NUR ---
PATIENT OFF BIPAP. REPORTS FEELING STUFFY NOSED. USING NC IN HIS MOUTH. RR 28. O2 SAT 95%. PATIENT REQUESTING A SODA WHICH WAS PROVIDED. DAUGHTER CHANGED OSTOMY BAG, LARGE BM NOTED.
--- NOTE | 2020-12-29 21:00 | NUR ---
PATIENT RESTING IN BED HOB ELEVATED. OFF BIPAP FOR ABOUT 30 MINS AT THIS TIME. PATIENT REPORTS FEELING LIKE HIS "THROAT MIGHT STOP WORKING". PATIENT APPEARS TO HAVE INCREASED WORK OF BREATHING. DISCUSSED WITH RT AND . PLACED PATIENT ON CPAP WITH PRESSURE OF 10. TITRATED VISTARIL DOSE FOR FULL EFFECT AT 50 MG. PATIENT REPORTS FEELING ANXIOUS. DAUGHTER IS AT BEDSIDE PROVIDING REASURANCE. VS STABLE. IV ABX PER ORDER, SITE WNL. PATIENT AGREEABLE TO REST ON CPAP FOR AT LEAST AN HOUR. CALL LIGHT IN REACH.
--- NOTE | 2020-12-29 22:15 | NUR ---
PATIENT NOT TOLERATING THE CPAP AT THIS TIME. REMOVED AND PLACED PATIENT ON OXY MASK AT 6L BECAUSE HE FEELS THAT HE NEEDS THE O2 THROUGH HIS MOUTH. OR SATS STABLE >90%. RR 20-26. PATIENT WILL FALL ASLEEP AND STARTLE AWAKE. DAUGHTER AT BEDSIDE FOR REASSURANCE.
--- NOTE | 2020-12-29 22:34 | NUR ---
PATIENT RESTING WITH OXYMASK IN PLACE. AGREES TO HAVE CPAP BACK IN PLACE WITHIN THE HOUR. EFFORT OF BREATHING STARTING TO WORSEN. RR 28. O2 SATS 97%.
--- NOTE | 2020-12-29 23:34 | NUR ---
patient placed back on cpap by rt for neb treatment. tolertaing at this time.
--- NOTE | 2020-12-30 00:51 | NUR ---
patient off cpap for 2-3 mins for a drink of water and lip balm. patient desat to 85%. back on cpap and quickly recovered.
--- NOTE | 2020-12-30 02:24 | NUR ---
PATIENT OFF CPAP AND ON 6L. HAVING SIPS OF WATER AND RESTING. PATIENT IS MILDLY ANXIOUS. ENCOURAGED TO FOCUS ON HIS BREATHING. DAUGHTER ASSITING WITH URNAL. PATIENT RR 26. O2 SAT 90% ON 6L.
--- NOTE | 2020-12-30 03:03 | NUR ---
PATIENT PROVIDED WITH PO VISTARIL AND PLACED BACK ON CPAP. CALL LIGHT IN REACH. VS STABLE.
--- NOTE | 2020-12-30 04:00 | NUR ---
PATIENT RESTING IN BED. EYES CLOSED. TOLERATING CPAP. VS STABLE. LUNG SOUNDS ARE DIMINISHED AND COARSE IN MITRA.
--- NOTE | 2020-12-30 04:16 | NUR ---
PATIENT HYPOTENSIVE AND URINE OUTPUT DECREASED TO 20 ML/HR. DISCUSSED WITH MD. ORDERES RECEIVED FOR 250 ML NS BOLUS OVER 30 MINS. REPEAT IF PATIENT STILL HYPOTENSIVE X1. AND CONTINUOUS FLUIDS OF D51/2NS @ 100 ML/HR. VERIFIED WITH REPEAT BACK.
--- NOTE | 2020-12-30 06:00 | NUR ---
PATIENT OFF CPAP ONTO 6L NC. COFFEE PROVIDED. PATIENT IS GOOD SPIRITS THIS MORNING. PATIENT HAS BEEN HAVING FREQUENT OUTPUT. DILUTE YELLOW URINE NOTED IN URNAL, 600 MLS. ATTEMPT TO DRAW LABS FROM IV UNSUCESSFUL. LAB NOTIFIED.
--- NOTE | 2020-12-30 06:48 | NUR ---
PATIENT TOLERATING 6L NC. IV ABX STARTED. PATIENT DENIES ANY NEEDS.
--- NOTE | 2020-12-30 07:12 | NUR ---
PATIENT UP TO THE RECLINER. 1PA. PATIENT STOOD ON HIS OWN. SLIGHTLY UNSTEADY. PATIENT TOLERATED WITH 6L NS. RR UP TO 30 AND INCREASED WORK OF BREATHING. PATIENT RECOVERED AFTER 3-5 MINS. 02 SATS 95%, RR 22. FRESH COFFEE PROVIDED. CALL LIGHT IN REACH.
--- NOTE | 2020-12-30 07:30 | NUR ---
REPORT RECIEVED. PATIENT SITTING IN CHAIR. DENIES PAIN.
--- NOTE | 2020-12-30 08:00 | NUR ---
ASSESSMENT DONE, OSTOMY BAG INTACT, WITH SMALL AMOUNT OF SOFT STOOL NOTED. TALKED WITH PATIENT ABOUT POC FOR DAY, INDICATES UNDERSTANDING. BREAKFAST GIVEN. O2 AT [address] IV ABX INFUSING.
--- NOTE | 2020-12-30 08:43 | NUR ---
fresh water given, bed linens changed. pt. up in chair. no other needs at this time
--- NOTE | 2020-12-30 09:30 | NUR ---
TYLENOL 500 MG PO GIVEN FOR TAILBONE PAIN. STOOD PATIENT TO REPOSITION. WITH EXERTION SAT DOWN TO 79, EXTRA SUPPLEMENTAL O2 PROVIDED. RR-36, HR TO 120. RECOVERY TIME APPROX 5 MIN. PATIENT IN ROOM. PATIENT TOOK BREAKFAST WELL.
--- NOTE | 2020-12-30 09:53 | NUR ---
CONTINUES TO SIT UP IN CHAIR.
--- NOTE | 2020-12-30 10:10 | NUR ---
BACK TO BED WITH ASSIST. WITH EXTREME DYSPNEA WITH EXERTION.
--- NOTE | 2020-12-30 10:12 | NUR ---
UPON RETURN TO BED, CPAP APPLIED.
--- NOTE | 2020-12-30 10:20 | NUR ---
OSTOMY BAG CHANGED.
--- NOTE | 2020-12-30 10:28 | NUR ---
PATIENT WAS GETTING UP WITH STAFF. NURSE SUGGESTS VISITING WHEN HIS IS PRESENT.
--- NOTE | 2020-12-30 11:30 | NUR ---
WET TO DRY DRESSING REAPPLIED TO MID ABD, ALLEVYN TO COCCYX REAPPLIED. ASSESSMENT DONE. NO FUTHER CHANGES.
[2020-12-30] MEDS ORDERED: STOOL SOFTENER100 MG PO (11:55)
[2020-12-30] MEDS ORDERED: VITAMIN D31250 MC1 PO (11:57)
[2020-12-30] MEDS ORDERED: PANTOPRAZOLE SO40 MG PO (11:58)
[2020-12-30] MEDS ORDERED: EFFER-K 10 MEQ10 MEQ PO (12:16)
[2020-12-30] MEDS ORDERED: MAGOX 400400 MG PO (12:17)
[2020-12-30] MEDS ORDERED: ACETYLCYST200 MG/1 M NEB (12:17)
--- NOTE | 2020-12-30 12:30 | NUR ---
TOOK LUNCH WELL. PATIENT STATES HE FEELS BETTER TODAY. HAS BEEN ON O2 AT 6L NC MOST OF THER DAY. USED CPAP APPORX 10 MIN AFTER RETURN TO BED EARLIER TODAY.
--- NOTE | 2020-12-30 12:55 | NUR ---
THIS RN IN TO CHECK ON PT. PT STATED THAT HER LEFT LEG WAS ACHING AT THIS TIME. PT ASSISTED IN REPOSITIONING LEG UNDER PILLOWS. PT STATED IT WAS MORE COMFORTABLE BUT STILL ACHING. PRN TYLENOL ADMINISTERED AT THIS TIME FOR 5/10 PAIN IN HER L LEG. PT IS STILL EATING HER LUNCH AT THIS TIME THOUGH PT REPORTS HAVING A LOW APPETITE. PT REPORTS NO FURTHER NEEDS, WILL CONTINUE PLAN OF CARE. CALL LIGHT IN REACH, BED IN LOWEST POSITION, IVFS INFUSING ORDERED, PT ON 2L O2 NC.
--- NOTE | 2020-12-30 13:45 | NUR ---
SLEEPING. NO DISTESS NOTED.
--- NOTE | 2020-12-30 14:10 | NUR ---
TURNED TO RIGHT SIDE. OSTOMY BAG EMPTIED FOR SOFT PASTY-LIKE BROWN STOOL. PATIENT STATES HE FEELS LIKE HE CAN'T CATCH HIS BREATH. PATIENT PERSONAL CPAP MACHINE APPLIED, UPON JR CPAP AT 3 L, O2 SAT DOWN TO 79, CPAP OFF, OXYMASK AT 6 L APPLIED, AFTER THIS APPLIED, O2 SAT TO 95. PATIENT WITH IN ROOM, SHE IS NOW ON THE PHONE CALL HER HUSBANDS FRESH FOODS CAKE DECORATOR. I TOLD THE PATINETS WE WOULD USE HOSPITAL CPAP MACHINE INSTEAD OF HER HUSANDS. VERY ANXIOUS ABOUT THIS RECENT EVENT. REASSURRANCE GIVEN TO PATIENT AND PATIENT .
--- NOTE | 2020-12-30 15:00 | NUR ---
PATIENT HAS HAD INCREASED WORK OF BREATHING THROUGH THE DAY. ENC CPAP, PATIENT REFUSING AT THIS TIME.
--- NOTE | 2020-12-30 16:00 | NUR ---
ASSESSMENT DONE. INCREASED CRACKLES THROUGHTOUT LUNG HARRISON NOTED. RT NOTIFIED TO SET BACK HOSPITAL CPAP.
--- NOTE | 2020-12-30 16:40 | NUR ---
RT GLORIA TO PLACE PATIENT ON HOSPITAL CPAP.
--- NOTE | 2020-12-30 17:00 | NUR ---
DR. MAXWELL NOTIFIED OF PATIENT INCREASED WORK OF BREATHING. ORDERS RECIEVED FOR VALIUM AND CXR. DINNER HELD AT THIS THIS.
--- NOTE | 2020-12-30 17:00 | NUR ---
PATIENT C/O INCREASED CHEST PAIN, RESP RATE 40. CPAP TO OFF.
--- NOTE | 2020-12-30 17:06 | NUR ---
VISTARIL 50 MG PO GIVEN.
--- NOTE | 2020-12-30 17:13 | NUR ---
PT OFF CPAP , UNABLE TO TOLERATE STATING INABILITY TO GET ENOUGH AIR IN AND CHEST TIGHTNESS.
--- NOTE | 2020-12-30 17:30 | NUR ---
DR. MAXWELL HERE TO SEE PATIENT, ORDERS FOR VALIUM AND CXR DC'D PATIENT CALMER AND BREATHING IS EASIER. DINNER GIVEN. REMAINS IN ROOM.
--- NOTE | 2020-12-30 20:35 | NUR ---
SHIFT REPORT RECEIVED FROM DORIAN ALSTON. ASSESSMENT COMPLETED AT THIS TIME. PT IS ALERT/ORIENTED, REPORTS FEELING FATIGUED. LUNGS HAVE CRACKLES THROUGHOUT, RESPIRATIONS APPEAR LABORED, 6L VIA NC IN PLACE. PT REPORTS 5/10 PLEURITIC CHEST PAIN, PRN TYLENOL GIVEN AND R.T. IS TO GIVE BREATHING TREATMENT SOON. HR REGULAR. BOWEL TONES ACTIVE, DENIES NAUSEA, HOWEVER REPORTS HEARTBURN. N.I.O. ENTERED FOR MAALOX, GIVEN. COLOSTOMY APPLIANCE INTACT, SMALL AMOUNT OF SOFT BROWN STOOL NOTED IN BAG. ABDOMINAL MIDLINE DRESSING C/D/I, PT DENIES NEED FOR DRESSING CHANGE AT THIS TIME. ALLEVYN TO COCCYX NOT VISULAIZED AT THIS TIME, PT'S SPOUSE ASSISTED THIS RN TO BOOST PT IN BED AND REPOSITION HIM. HE HAS INFLATABLE PAD UNDER HIS BOTTOM. IV SITES INTACT, DRESSING CHANGED TO RIGHT IV SITE, BOTH IV SITES PATENT. URINAL EMPTIED. PT AND HIS BOTH DENY NEEDS AT THIS TIME, CALL LIGHT WITHIN REACH. PLAN OF CARE DISCUSSED AND QUESTIONS ANSWERED.
--- NOTE | 2020-12-30 22:19 | NUR ---
PT'S CAME OUT TO ASK FOR ASSISTANCE REPOSITIONING PT. BILATERAL HIPS FLOATED ON PILLOWS. PT REPORTS THAT PLEURITIC PAIN HAS IMPROVED, BUT THAT HIS COCCYX PAIN IS 8/10. DR. MAXWELL CALLED AND ORDERS PLACED BY FOR PRN NORCO, GIVEN AT THIS TIME. SCHEDULED MEDS ALSO GIVEN PER EMAR. PT/FAMILY DENIES FURTHER REQUESTS AT THIS TIME.
--- NOTE | 2020-12-30 23:07 | NUR ---
PRN VISTARIL GIVEN PER PT REQUEST FOR ANXIETY. PT HAS POSITIONED HIMSELF ON HIS RIGHT SIDE. REMAINS AT BEDSIDE.
--- NOTE | 2020-12-31 00:41 | NUR ---
ASSESSMENT COMPLETED. PT WAS SLEEPING, BUT WOKE EASILY WHEN SPOKEN TO, REMAINS DROWSY AND DOZES OFF TO SLEEP BETWEEN CARE. REPORTS THAT PLEURITIC CHEST PAIN HAS RESOLVED AND THAT COCCYX PAIN IS NOW 3/10 AND TOLERABLE. LUNGS SOUND DIM IN UPPERS WITH CRACKLE IN BASES. REMAINDER OF ASSESSMENT UNCHANGED. PT AGREEABLE TO TRYING CPAP NOW FOR SCHEDULED BREATHING TREATMENT AND TO WEAR AN HOUR AFTERWARD. R.T. IN ROOM AT THIS TIME.
--- NOTE | 2020-12-31 00:48 | NUR ---
PT CALLED STATING THAT HIS NOSE IS TOO PLUGGED TO TOLERATE CPAP AND REQUESTS TO TAKE IT OFF. BREATHING TREATMENT HAS BEEN COMPLETED PER R.T. AND PT NOW BACK ON 6L NC. OFFERED HIM OXYMASK, BUT PT STATES NC IS FINE. NO FURTHER REQUESTS AT THIS TIME.
--- NOTE | 2020-12-31 02:26 | NUR ---
IN TO CHECK ON PT WHO WOKE WHEN I ENTERED ROOM. PT DENIES PAIN AND OTHER COMPLAINTS AT THIS TIME. ANTIBIOTIC INFUSION COMPLETED, IV SALINE LOCKED. PT'S REMAINS AT BEDSIDE. CALL LIGHT WITHIN REACH.
--- NOTE | 2020-12-31 04:57 | NUR ---
ASSESSMENT COMPLETED, PT WAS SLEEPING BUT WOKE WHILE I WAS IN ROOM. PT REPORTS 5/10 PLEURITIC AND COCCYX PAIN, PRN NORCO GIVEN. REMAINDER OF ASSESSMENT UNCHANGED. R.T. IN ROOM TO GIVE BREATHING TREATMENT. FRESH ICE WATER AND COFFEE PROVIDED PER REQUEST. PT DENIES FURTHER NEEDS, CALL LIGHT WITHIN REACH.
--- NOTE | 2020-12-31 06:07 | NUR ---
IN TO GIVE SCHEDULED MEDS PER EMAR. PT REPORTS AT THIS TIME HIS COCCYX AND PLEURITIC PAIN HAVE IMPROVED TO 2/10 WHICH FEELS TOLERABLE AT THIS TIME. REFILLED COFFEE PER REQUEST. DENIES FURTHER NEEDS AT THIS TIME.
--- NOTE | 2020-12-31 06:45 | NUR ---
URINAL EMPTIED AND BREAKFAST ORDER CALLED DOWN TO KITCHEN. NO FURTHER REQUESTS AT THIS TIME.
--- NOTE | 2020-12-31 07:50 | NUR ---
IN PATIENT'S ROOM FOR ASSESSMENT, VITALS, AND GENERATION MANAGER. PT STATES OVERALL HE IS FEELING BETTER TODAY COMPARED TO YESTERDAY. PT ENDORSES THAT HIS CHEST PAIN ISN'T BAD TODAY, AND HE FEELS LIKE HE CAN TAKE A DEEPER BREATH. PT STATES HIS PAIN IS A 6/10 AT THIS TIME, AND HE WOULD LIKE FOR IT TO BE AROUND A 3 IF POSSIBLE. LUNG SOUNDS ARE CLEAR IN THE UPPER LOBES ONLY, AND HAVE MARKED COARSE CRACKLES NOTED IN THE MID AND LOWER LUNGS, BOTH ANTERIORLY AND POSTERIORLY. IV SITES FLUSHING WELL W/O SIGNS OF REDNESS OR INFILTRATION. IV ABX ZOSYN INFUSING. PLAN OF CARE DISCUSSED WITH PATIENT. DISCUSSED THE POTENTIAL NEED FOR CPAP THROUGH THE DAY AND NIGHT. WILL CONTINUE TO MONITOR.
--- NOTE | 2020-12-31 08:31 | NUR ---
fresh water given, room cleaned, floors done. is in the room at this time. no other needs call light with in reach
--- NOTE | 2020-12-31 08:59 | NUR ---
PT'S HAS COME AND NOW LEFT THE DAY SHE STATES SHE IS GOING TO WORK. RT HAS BEEN IN ROOM WITH PATIENT AND GIVING BREATHING TX. PT REPORTEDLY HAS A BLOODY NOSE AND RT SUGGESTING POTENTIALLY SWITCHING PT TO VAPOTHERM FOR THE HUMIDITY PROPERTIES IT COULD OFFER. WILL DISCUSS WITH DR. MAXWELL UPON ROUNDS. CONTINUE TO MONITOR.
--- NOTE | 2020-12-31 10:13 | NUR ---
PATIENT VISIBLY APPEARS A LITTLE MORE SHORT OF BREATH AND STATES HIS PAIN IS INCREASING AGAIN WELL. PT'S DAUGHTER IS IN THE ROOM. PT AGREEABLE TO WEAR THE CPAP FOR A BREAK SINCE HE'S STARTING TO FEEL WINDED. CPAP ON AT 10 AND 40% FI02. HR 107-110 AT THIS TIME. PT'S LUNCH ORDERED. RT CALLED TO VERIFY SETTINGS AND THEY WILL COME SEE PATIENT. CONTINUE TO MONITOR.
--- NOTE | 2020-12-31 11:09 | NUR ---
PATIENT OFF BIPAP AT THIS TIME AND BACK ON NASAL CANNULA AT 6 L NC. SP02 IS ONLY 89% AT THIS MOMENT. PT REPORTS HE DOES FEEL LIKE HE'S BREATHING A LITTLE BETTER NOW THAN HE WAS EARLIER. PT'S DAUGHTER REMAINS IN ROOM.
--- NOTE | 2020-12-31 11:43 | NUR ---
RT IN ROOM WITH PATIENT AT THIS TIME AND GETTING PATIENT SET UP ON THE VAPOTHERM. WILL CONTINUE TO MONITOR.
--- NOTE | 2020-12-31 11:59 | NUR ---
CHEST XRAY COMPLETE. PT RESTING ON VAPOTHERM. DURING THIS ACTIVITY, VAPOTHERM INCREASED TO 70% AND 20 L DUE TO DESATURATION DOWN TO 84%. WILL CONTINUE TO MONITOR. CRACKLES REMAIN EVIDENT IN MID TO LOWER LUNG BASES, CLEAR UPPER LOBES. RR IS CURRENTLY 25. LAST BP 114/72.
--- NOTE | 2020-12-31 12:33 | NUR ---
DR. MAXWELL IN ROOM TO SEE PATIENT. PLAN TO TALK WITH PT'S CARTON FORMING MACHINE HELPER AND SEE IF ANY FURTHER RECOMMENDATIONS ARE AVAILABLE. PT EATING HIS LUNCH AT THIS TIME. PT'S NOW BACK IN ROOM WITH PATIENT.
--- NOTE | 2020-12-31 13:15 | NUR ---
TO CCU TO ATTEMPT PATIENT ASSESSMENT. PER KASSANDRA ALARCON PATIENT RESTING AFTER A TOUGH MORNING. KASSANDRA ASKS THAT PATIENT NOT BE AWAKENED AT THIS TIME. PER KASSANDRA ALARCON PATIENT MAY REQUIRE NEW CPAP HE DID NOT SATURATE WELL OVER NIGHT WITH HIS HOME CPAP. PATIENTS OXYGEN DEMANDS INCREASING, NOW REQUIRING VAPOTHERM. WILL CONTINUE TO FOLLOW PATIENT AND ATTEMPT TO COMPLETE CASE MANAGEMENT ASSESSMENT TOMORROW.
--- NOTE | 2020-12-31 13:32 | NUR ---
PATIENT REPOSITIONED IN BED AND TOLERATED THIS WELL. PT REMAINS ON VAPOTHERM AT 15 L AND 50%. PT FINISHED HIS LUNCH AND TOLERATED ABOUT 50% OF THIS. WILL DO PATIENT'S BATH AND LINEN CHANGE AFTER HE RESTS FOR A WHILE LONGER. SP02 IS 93% AT THIS TIME. CONTINUE TO MONITOR.
--- NOTE | 2020-12-31 15:43 | NUR ---
rn and community relations officer gave pt bed bath, linen change and colostomy bag changed.
--- NOTE | 2020-12-31 15:50 | NUR ---
PATIENT GIVEN BED BATH AND LINEN CHANGE. PT TOLERATED WELL. OSTOMY BAG CHANGED OUT AND DRESSING ON MIDLINE ALSO CHANGED. MIDLINE WOULD APPEARS TO BE HEALING WELL, AND PT AND HIS ARE EXCITED ABOUT THE PROGRESS SHOWN ON THIS WOUND. WET TO DRY DRESSING UTILIZED. PT HAS REDNESS ON COCCYX AND A PRESSURE ULCER THAT IS UNDERNEATH A ALLEVYN COCCYX SPECIFIC FOAM DRESSING. PT STILL REMAINS ON VAPOTHERM AT 15L AND 50% AND TOLERATING THIS WELL. PT RECEIVING IV ABX AT THIS TIME INTO LEFT FOREARM IV SITE. DINNER ORDERED FOR PATIENT AND HIS . ROOM TIDIED UP. RT IN ROOM AND GIVES BREATHING TX WELL. CONTINUE TO MONITOR.
--- NOTE | 2020-12-31 17:09 | NUR ---
FI02 DECREASED TO 45%. SP02 HAD BEEN TRENDING IN THE UPPER 90s ON 50%. CONTINUE TO MONITOR. PT'S DINNER IN ROOM AND PT'S ALSO EATING HER DINNER.
--- NOTE | 2020-12-31 20:00 | NUR ---
SHIFT REPORT RECEIVED FROM DORIAN BRADY. PT CALLED AT THIS TIME TO REQUEST VISTARIL, 50MG GIVEN AT THIS TIME. PT ALSO REPORTS 6/10 COCCYX AND PLEURITIC PAIN, 1 TAB NORCO GIVEN. LUNGS DIM WITH CRACKLES IN BASES, VAPOTHERM IN PLACE 15L @45%. HR REGULAR. BOWEL TONES ACTIVE. COLOSTOMY APPLIANCE IN PLACE, NO STOOL AT THIS TIME, STOMA LOOKS PINK AND HEALTHY. DENIES NAUSEA. ABDOMINAL DRESSING C/D/I, PT DENIES NEED FOR DRESSING CHANGE. IV SITES INTACT AND PATENT. URINAL EMPTIED. ALLEVYN TO COCCYX NOT VISUALIZED AT THIS TIME, PT HAS INFLATABLE PAD UNDERNEATH HIM AND IS ABLE TO REPOSITION HIMSELF IN BED. PT DENIES FURTHER NEEDS AT THIS TIME, REMAINS AT BEDSIDE. CALL LIGHT IN PLACE.
--- NOTE | 2020-12-31 22:05 | NUR ---
IN TO GIVE SCHEDULED MEDS, PT REPORTS PAIN IS UNCHANGED AT THIS TIME AND THAT HE IS FEELING SOMEWHAT ANXIOUS. ASSISTED PT TO REPOSITION IN BED. FRESH ICE WATER AND SODA. VAPOTHERM REMAINS IN PLACE, SETTINGS UNCHANGED. PT DENIES FURTHER NEEDS AT THIS TIME, CALL LIGHT WITHIN REACH.
--- NOTE | 2021-01-01 00:12 | NUR ---
IN TO CHECK ON PT WHO IS SLEEPING SOUNDLY AT THIS TIME. DOES NOT APPEAR TO BE IN ANY DISTRESS, RESPIRATIONS EVEN AND UNLABORED. VAPOTHERM REMAINS IN PLACE, SETTINGS UNCHANGED. URINAL EMPTIED. WILL ALLOW FOR REST AND CONTINUE TO MONITOR.
--- NOTE | 2021-01-01 01:17 | NUR ---
IN TO CHECK LOOSE CARDIAC LEADS, PT WOKE WHILE I WAS IN ROOM. PT DENIES DISCOMFORT OR FURTHER NEEDS, STATES HE HAS BEEN SLEEPING WELL. CALL LIGHT WITHIN REACH.
--- NOTE | 2021-01-01 03:02 | NUR ---
PT SLEEPING AT THIS TIME, NO APPARENT DISTRESS. RESPIRATIONS EVEN AND UNLABORED, VAPOTHERM IN PLACE WITH SETTINGS UNCHANGED. URINAL EMPTIED.
--- NOTE | 2021-01-01 04:57 | NUR ---
IN TO CHECK ON PT. SLEEPING, BUT WOKE WHILE I WAS IN ROOM. DENIES PAIN AT THIS TIME. LUNGS HAVE CRACKLES THROUGHOUT AND SOUND MORE COARSE IN LEFT UPPER LOBE. PT DENIES CHEST PAIN AND SOB, VAPOTHERM REMAINS IN PLACE WITH SETTINGS UNCHANGED. REMAINDER OF ASSESSMENT UNCHANGED. URINAL EMPTIED. PT DENIES FURTHER REQUESTS, CALL LIGHT WITHIN REACH.
--- NOTE | 2021-01-01 06:08 | NUR ---
IN TO GIVE SCHEDULED MEDS. PT AWAKE, DENIES PAIN AT THIS TIME. URINAL EMPTIED, COLOSTOMY REMAINS EMPTY. PT DENIES NEEDS AT THIS TIME, CALL LIGHT WITHIN REACH.
--- NOTE | 2021-01-01 07:26 | NUR ---
REPORT REC'D FROM STREET ROLLER ENGINEER AND PLAN OF CARE RESUMED. PT AWAKE, SITTING UPRIGHT IN BED AND IN GOOD SPIRITS. PT'S IN ROOM AND HAS BROUGHT PATIENT COFFEE AND DONUTS THIS AM. PT REMAINS ON VAPOTHERM AT 15L AND 45%, AND CURRENT SP02 IS 92%. PT REPORTS THAT HE IS FEELING BETTER THIS AM. PT STATES THAT HIS NOSE HAS CONTINUED TO DRAIN AND RUN SOME, BUT HE CAN BREATHE EASIER WITH CLEARER NASAL PASSAGES, MAKING IT EASIER OVERALL TO BREATHE. WILL CONTINUE TO MONITOR.
--- NOTE | 2021-01-01 07:50 | NUR ---
vs done room picked up garbage emptied, no other needs at this time
--- NOTE | 2021-01-01 08:43 | NUR ---
breakfast taken in to pt.
--- NOTE | 2021-01-01 08:57 | NUR ---
ASSESSMENT COMPLETE. PT STATES HE IS OVERALL FEELING BETTER. ABLE TO EAT A GOOD AMOUNT OF HIS BREAKFAST. WILL CONTINUE TO MONITOR.
--- NOTE | 2021-01-01 09:02 | NUR ---
PATIENT HAVING PRODUCTIVE SPUTUM THAT IS GREENISH/YELLOWISH IN COLOR. SPUTUM SAMPLE WILL BE OBTAINED PATIENT IS ABLE TO PROVIDE ONE.
--- NOTE | 2021-01-01 09:32 | NUR ---
DR. MAXWELL IN ROOM TO SEE PATIENT AND DISCUSS PLAN OF CARE. WILL TRY AND WEAN PATIENT OFF VAPOTHERM AND ONTO REGULAR HI-CELESTINA IF POSSIBLE. PT ABLE TO PRODUCE SPUTUM AND SAMPLE SENT TO LAB. PATIENT WANTING TO REST AT THIS TIME AND AGREES TO INCREASE MOBILITY LATER THIS MORNING, HOPING TO GET TO CHAIR. PT'S DAUGHTER IN ROOM AT THIS TIME. ALL QUESTIONS ANSWERED BEST POSSIBLE. CONTINUE TO MONITOR.
--- NOTE | 2021-01-01 10:22 | NUR ---
PER MEETING KASSANDRA RN PATIENT REMAINS ON VAPOTHERM AND IS STILL FEELING POORLY TODAY. KASSANDRA RN ASK TO DELAY CASE MANAGEMENT ASSESSMENT UNTIL PATIENT IS FEELING BETTER AND PATIENT IS AVAILABLE. WILL CONTINUE TO FOLLOW UP WITH PATIENT DURING HIS STAY.
--- NOTE | 2021-01-01 10:54 | NUR ---
PATIENT HELPED UP TO CHAIR. VAPOTHERM TURNED UP TO 70% WHILE PATIENT MOVED OUT OF BED, BUT NOW BACK TO 50% AND 15 L. PT TOLERATED THIS ACTIVITY WELL FOR HIM, AND TOOK HIM TIME WITH THIS ACTIVITY. PT MOVES SLOWLY, BUT ABLE TO MANAGE HIS BREATHING WITHOUT LETTING IT GET OUT OF HAND. RR UP TO 35-40, BUT SP02 IS MAINTAINING. WILL CONTINUE TO MONITOR. LUNCH ORDERED FOR PATIENT. PT'S DAUGHTER REMAINS IN ROOM.
--- NOTE | 2021-01-01 10:57 | NUR ---
rn and java application engineer helped pt get up and into chair. linens changed, urinal emptied. room picked up.
--- NOTE | 2021-01-01 11:25 | NUR ---
FI02 DOWN TO 40% AND 15 L. PT REMAINS SITTING IN CHAIR WITH HIS DAUGHTER IN THE ROOM.
--- NOTE | 2021-01-01 11:39 | NUR ---
PATIENT SWITCHED TO THE HI-CELESTINA WALL NASAL CANNULA AT 10 L AND WILL TITRATE DOWN FROM THERE. PT LIKING THIS OTHER CANNULA BETTER SO FAR. SP02 IS 98% AT THIS TIME. CONTINUE TO MONITOR.
--- NOTE | 2021-01-01 12:08 | NUR ---
PATIENT EATING HIS LUNCH IN THE CHAIR AND TOLERATING THE NASAL CANNULA AT 6 L WITH SP02 AT 93% AT THIS TIME. CONTINUE TO MONITOR.
--- NOTE | 2021-01-01 15:34 | NUR ---
PATIENT HAS REMAINED ON THE 5 L HIGH-FLOW WALL NASAL CANNULA WITH HUMIDITY AND TOLERATED THIS WELL THIS AFTERNOON. PATIENT IS STARTING TO FEEL ANXIOUS HOWEVER, AND REQUESTING SOMETHING FOR THIS. LAST DOSE WAS GIVEN LAST EVENING AROUND 1999. PATIENT GIVEN HYDROXYZINE 25 MG (SEE EMAR). PT STILL STATES OVERALL HE IS FEELING BETTER AND HIS LUNGS FEEL BETTER. DISCUSSED FURTHER PLAN OF CARE WITH PATIENT AND HIS PROGRESS TO DATE, AND POTENTIAL PLANS TO BE ABLE TO TRANFER OUT OF CCU TOMORROW IF HE STAYS ABLE TO TOLERATE THE HIGH-FLOW NC. PT'S REMAINS AT BEDSIDE AND ATTENTIVE TO PATIENT. DENIES FURTHER NEEDS.
--- NOTE | 2021-01-01 20:40 | NUR ---
SHIFT REPORT RECEIVED FROM DORIAN BRADY. ASSESSMENT COMPLETED AT THIS TIME. PT IS ALERT/ORIENTED, REPORTS 6/10 COCCYX AND PLEURITIC PAIN, PRN NORCO GIVEN. LUNGS HAVE CRACKLES THROUGHOUT, 4L HIGH FLOW NC IN PLACE, PT REPORTS MILD SOB. HR REGULAR. BOWEL TONES ACTIVE, DENIES NAUSEA, COLOSTOMY APPLIANCE IN PLACE WITH SOFT BROWN STOOL NOTED IN BAG. URINAL EMPTIED. DRESSING CHANGED TO MIDLINE ABDOMEN. WOUND IS HEALING WELL, CLEANSED WITH WOUND WASH AND THEN COVERED WITH SALINE SOAKED GAUZE AND A DRY ABD PAD, SECURED WITH TAPE. ALLEVYN TO COCCYX REMAINS IN PLACE, PT REPOSITIONED IN BED WITH ASSISTANCE FROM THIS RN AND PT'S SPOUSE. IV SITES INTACT, ABX INFUSION STARTED. PT DENIES FURTHER NEEDS, CALL LIGHT WITHIN REACH.
--- NOTE | 2021-01-01 22:39 | NUR ---
IN TO GIVE SCHEDULED MEDS PER EMAR. PT REPORTS PAIN IS IMPROVED AND CURRENTLY RATES IT 2/10 AND TOLERABLE. URINAL EMPTIED. NO FURTHER NEEDS AT THIS TIME.
--- NOTE | 2021-01-02 00:30 | NUR ---
PT SLEEPING SOUNDLY AT THIS TIME. RESPIRATIONS EVEN AND UNLABORED, 4L O2 REMAINS IN PLACE. URINAL EMPTIED. WILL ALLOW FOR REST AND CONTINUE TO MONITOR.
--- NOTE | 2021-01-02 02:23 | NUR ---
PT CONTINUES TO SLEEP SOUNDLY, NO APPARENT DISTRESS. RESPIRATIONS EVEN/UNLABORED, 4L O2 REMAINS IN PLACE. URINAL EMPTIED. WILL CONTINUE TO ALLOW FOR REST.
--- NOTE | 2021-01-02 04:28 | NUR ---
PT CONTINUES TO SLEEP, NO APPARENT DISTRESS, RESPIRATIONS EVEN AND UNLABORED. 4L O2 REMAINS IN PLACE. URINAL EMPTIED. HR:84, RR:16, SPO2:96%. WILL CONTINUE TO ALLOW FOR REST.
--- NOTE | 2021-01-02 06:04 | NUR ---
PT AWAKE, DENIES PAIN OR OTHER DISCOMFORT. COFFEE PROVIDED PER REQUEST. SCHEDULED MEDICATIONS GIVEN.
--- NOTE | 2021-01-02 06:47 | NUR ---
COLOSTOMY BAG CHANGED FOR LARGE AMOUNT OF SOFT BROWN STOOL.
--- NOTE | 2021-01-02 07:04 | NUR ---
OXYGEN DESATURATED TO 81%, INCREASED OXYGEN TO 8L ON HIGH FLOW NC. PT HAS SLIGHTLY BLOODY NOSE IN RIGHT NOSTRIL. SPO2 NOW AT 97%.
--- NOTE | 2021-01-02 07:30 | NUR ---
TOOK REPORT ON PT. PT IN ROOM WITH EATING BREAKFAST. PT DENIES NEEDS AT THIS TIME.
--- NOTE | 2021-01-02 11:03 | NUR ---
WET TO DRY DRESSING ON PTS ABD CHANGED. POST OP SITE APPEARS TO BE WELL HEALING AND IS WELL APPROXIAMED.
--- NOTE | 2021-01-02 11:35 | NUR ---
PT ARRIVED TO MED SURG FROM CCU VIA BED. REPORT RECEIVED FROM MANOHAR ALARCON. PT VSS. SATING 93% ON 5 L NC. SLIGHTLY TACHYPNEIC, RR 24. DENIES SOB AT REST. VERY SOB W/ ACTIVITY. MAXIMINO AT BEDSIDE. LUNCH ORDERED FOR PT.
--- NOTE | 2021-01-02 11:38 | NUR ---
PT TRANSFERED TO MED SURG RM 117 BY BED. REPORT GIVENT TO LONA ALARCON WHO REPORTS NO QUESTIONS AT THIS TIME. PT TOLERATED TRANSFER WELL. RT NOTIFIED REGUARDING TRANSFER.
--- NOTE | 2021-01-02 13:06 | NUR ---
RECVD CALL FROM TERESA AT [facility] REGARDING PATIENT UPCOMING MOVE. TERESA STATES THAT PATIENTS MAXIMINO HAS ADVISED THEM THAT THEY ARE BEING EVICTED FROM THEIR HOME 02/23/2021. TERESA REQUESTING HELP FROM OUR COMMUNITY HEALTH WORKER IF AVAILABLE. INTO ROOM TO SPEAK WITH PATIENT. CASE MANAGEMENT ASSESSMENT COMPLETED WITH THE HELP OF PATIENT AND MAXIMINO. MAXIMINO STATES THAT THEY WILL BE MOVING 02/23/21, BUT DOES NOT EXPRESS ANY CONCERNS ABOUT THE MOVE. PATIENT STATES HE WISHES TO RETURN HOME WHEN STABLE. PATIENT HAS BEEN FOLLOWED BY [facility] FOR FPC AND PT. MAXIMINO STATES THEY ARE VERY HAPPY WITH THE CARE THEY HAVE RECVD FROM [facility] AND THEY WISH TO CONTINUE WITH THEIR SERVICES WHEN DISCHARGED. PATIENT STATES HE HAS A WHEELCHAIR, WALKER, HOSPITAL BED, CPAP AND O2 AT HOME AT THIS TIME. WHEN INQUIRING ABOUT FINANCIAL NEEDS PATIENT AND DECLINE ANY NEEDS. ADVISED PATIENT AND CASE MANAGEMENT WILL CONTINUE TO ROUND ON PATIENT DURING HIS STAY.
--- NOTE | 2021-01-02 19:40 | NUR ---
SHIFT REPORT RECEIVED FROM MICHELLEMAPATRICIA MCGRAW AT BEDSIDE. pt AWAKE AND RESTING IN BED, 4LNC IN PLACE, RR SOMEWHAT ELEVATED. STATES, THIS IS HIS NORMAL. WILL MONITOR, AWAITING PHARMACY TO VERIFY X1 DOSE FOR VALIUM. DRESSING TO ABD C/D/I. NO ADDITIOANL NEEDS AT THIS TIME. CALL LIGHT IN REACH.
--- NOTE | 2021-01-02 20:22 | NUR ---
SCHEDULED VALIUM GIVEN, SEE EMAR. RR SOMEWHAT LABORED, RR 32. pt INITIALLY DIDN'T WANT TO TAKE MEDICATION BECAUSE HE "COULDN'T FALL ASLEEP". EDUCATION GIVEN ON PURPOSE OF MEDICATION. ALSO IN ROOM. NO FURTHER NEEDS VERBALIZED, WILL MONITOR. CALL LIGHT IN REACH.
--- NOTE | 2021-01-02 21:00 | NUR ---
AT APPROX 2100: DR ERWIN AT RN STATION AND ROUNDING. DR ERWIN MADE AWARE AND REVIEWED RESULTS OF RECENT VBG AND IS AWARE OF RECENT RR OF 32. DR ERWIN FEELS IT IS ANXIETY RELATED. PER DR ERWIN ALLOW RECENT VALIUM TO TAKE AFFECT AND IF pt CONTINUES TO REPORT/SHOW S/SX OF ANXIETY, GIVE X1 DOSE FOR 25MG PO SEROQUEL.
--- NOTE | 2021-01-02 21:30 | NUR ---
ASSESSMENT COMPLETE, SCHEDULED MEDS GIVEN (SEE EMAR). pt REPORTS RECENT VALIUM IS STARTING TO KICK IN, WILL CONTINUE TO MONITOR AND GIVE X1 DOSE OF SEROQUEL IF NEEDED. 4LNC IN PLACE, HOB ELEVATED TO EASE BREATHING. HR 116, NO DISTRESS NOTED. ABD DRESSING C/D/I. NO FURTHER NEEDS, CALL LIGHT IN REACH. REMAINS IN ROOM AND IS INVOLVED WITH CARE.
--- NOTE | 2021-01-02 23:00 | NUR ---
SCHEDULED IV ABX GIVEN, SEE EMAR. IV SITE WNL AND FLUSHES EASILY. RR STILL SOMEWHAT LABORED, BUT IMPROVING. RR 26. pt AWAKE AND IS INTERACTIVE WITH CHIEF HOSPITAL ADMINISTRATOR AND . SMILING AND TALKING ABOUT DOGS AT HOME. WILL MONITOR FOR CHANGES, CALL LIGHT IN REACH.
--- NOTE | 2021-01-03 00:07 | NUR ---
pt CONTINUES TO REPORT FEELINGS ANF ANXIETY, X1 DOSE OF 25MG SEROQUEL GIVEN AT THIS TIME, SEE EMAR. NO FURTHER NEEDS AT THIS TIME, CALL LIGHT IN REACH. IN ROOM. IV ABX INFUSING PER MD ORDERS, SITE REMAINS WNL.
--- NOTE | 2021-01-03 01:56 | NUR ---
REPORT GIVEN TO DORIAN CONNELL TO RESUME CARE FOR pt AT THIS TIME.
--- NOTE | 2021-01-03 03:48 | NUR ---
PATIENT IS RESTING IN BED WITH EYES CLSOED, RR 16. CALL LIGHT IN REACH. ASLEEP ON COUCH CALL LIGHT IN REACH.
--- NOTE | 2021-01-03 06:19 | NUR ---
MORNING ABX INFUSING PER ORDER. VITALS TAKEN AND RECORDED. INTAKE AND OUTPUT RECORDED. PATIENT DENIES ANY NEEDS. CALL LIGHT IN REACH.
--- NOTE | 2021-01-03 08:45 | NUR ---
PT GIVEN NORCO AND VISTARIL FOR PAIN AND MODERATE ANXIETY. ASSESSMENT COMPLETED, COARSE CRACKLES HEARD THROUGHOUT LUNGS. PT REMAINS ON 4 L SATING 90-95%. DENIES SOB, RR 24-34. BOWEL TONES ARE ACTIVE. COLOSTOMY SITE WNL. PT DENIES FURTHER NEEDS.
--- NOTE | 2021-01-03 11:38 | NUR ---
DRSG CHANGED TO INCISION SITE ON RT SIDE ABDOMEN, WET-TO-DRY, SITE APPEARS TO BE IMPROVING. DRESSED W/ GAUZE, ABD AND PAPER TAPE. PT TOLERATED WELL. OSTOMY BAG EMPTIED OF 100 MLS BROWN SOFT STOOL. PT REPOSITIONED OFF COCCYX, VISHALVYN REMAINS C,D,I. PT REPORTS PAIN HAS DECREASED TO 4/10 AFTER NORCO THIS AM. REMAINS AT BEDSIDE.
--- NOTE | 2021-01-03 17:14 | NUR ---
spoke with Onesimo. He states he has all equipment and help he needs. His assists him with his dressing changes. Cont. to plan to dc to home on dc when cleared medically.
--- NOTE | 2021-01-03 19:20 | NUR ---
SHIFT REPORT RECEIVED FROM DAYSHIFT DORIAN MCGRAW. pt AWAKE AND RESTING IN BED. IV SITE SALINE LOCKED, BRISK BLOOD RETURN NOTED. pt REPORTS SOME ANXIETY, DISCUSSED THAT PAIN AND ANXIETY MEDS ARE UNAVAILABLE AT THIS TIME. pt AGREES TO WAIT UNTIL PAIN/ANXIETY MEDS BECOME AVAILABLE. NO FURTHER NEEDS, CALL LIGHT IN REACH. 4LNC IN PLACE. RR EVEN AND UNLABORED.
--- NOTE | 2021-01-03 20:45 | NUR ---
ASSESSMENT COMPLETE, SCHEDULED MEDS GIVEN ALONG WITH PRN PAIN MEDICATION FOR 7/10 GENERAIZED PAIN. IN ROOM AND ATTENTIVE, VSS, 4LNC IN PLACE. RR SOMEWHAT LABORED, pt REPORTS SOME FEELINGS OF ANXIETY. SCHEDULED SEROQUEL GIVEN, pt AGREES TO TRY THIS FIRST AND ASK FOR ADDITIONAL ANXIETY MEDICATION IF NEEDED. WET TO DRY DRESSING TO ABD COMPLETE, SITE WNL AND APPEARS TO BE HEALING WELL. COLOSTOMY AND STOMA SITE ALSO WNL, pt DENIES NAUSEA, SMALL AMOUNT SOFT BROWN STOOL NOTED IN STOMA BAG. ALLEVYN TO COCCYX C/D/I, WILL MONITOR FOR CHANGES. pt ABLE TO CHANGE POSITIONS IN BED. NO FURTHER NEEDS, CALL LIGHT IN REACH.
--- NOTE | 2021-01-03 22:20 | NUR ---
IN ROOM TO GIVE SCHEDULED IV ABX, SITE WNL AND FLUSHES EASILY. pt DENIES NEED FOR ADDITIONAL ANXIETY MED AT THIS TIME, WILL MONITOR. NO FURTHER NEEDS, CALL LIGHT IN REACH.
--- NOTE | 2021-01-04 00:22 | NUR ---
pt RESTING IN BED WITH EYES CLOSED, RR APPROX 20-22. NO DISTRESS NOTED, 4LNC IN PLACE. REMAINS IN ROOM, CALL LIGHT IN REACH.
--- NOTE | 2021-01-04 01:30 | NUR ---
ROUNDED ON pt, pt RESTING QUIETLY IN BED, RR EVEN AND UNLABORED. pt APPEARS MUCH MORE RELAXED AND REPORTS PAIN AND ANXIETY IS "MUCH BETTER'. REPORTS TOLERABLE 2-3/10 PAIN. IV ABX REMAINS INFUSING PER MD ORDERS, SITE WNL. NO ADDITIONAL NEEDS AT THIS TIME. CALL LIGHT IN REACH.
--- NOTE | 2021-01-04 03:19 | NUR ---
IV ABX COMPLETE, IV IS NOW SL. EMPTIED URINAL AND PROVIDED FRESH ICEWATER. PT DENIES FURTHER NEEDS AND CALL LIGHT IS CLOSE.
--- NOTE | 2021-01-04 06:29 | NUR ---
IV ABX INFUSING PER MD ORDERS, SITE WNL AND FLUSHES WELL. NO FURTHER NEEDS VERBALIZED BY pt, CALL LIGHT IN REACH.
--- NOTE | 2021-01-04 09:30 | NUR ---
IN TO GIVE PT MORNING MEDICATIONS. WAFER AND COLOSTOMY BAG CHANGED IT WAS BEGINNING TO LEAK OUT WAFER. DRESSING CHANGED TO RIGHT ABD, SALINE SOAKED GAUZE, ABD AND TAPE APPLIED. NORCO GIVEN FOR 7/10 PLEURAL AND BOTTOM PAIN. PT REMAINS ON 4 L O2 SATING 90-95% DESATS TO 90% W/ ACTIVTY AND PT REPORTS FEELING VERY SOB W/ EXERTION. PT USES 3 L O2 CHRONICALLY AT HOME. LUNG SOUNDS COARSE CRACKLES THROUGHOUT. BOWEL TONES ARE ACTIVE. COLOSTOMY STOOL HAS BEEN SOFT BROWN. PT TOLERATING REGULAR DIET WELL. ALLEVYN TO COCCYX FOR EARLY STAGE PRESSURE ULCER, PT HAS PADDING TO COCCYX AND REPOSITIONS SELF, PICTURES OF WOUND ON CHART. MAXIMINO REMAINS AT BEDSIDE. PT DENIES FURTHER NEEDS. CALL LIGHT IN REACH.
--- NOTE | 2021-01-04 11:00 | NUR ---
PHYSICAL THERAPY IN TO WORK WITH PT.
--- NOTE | 2021-01-04 11:25 | NUR ---
PATIENT IN BED RESTING. PATIENT SAID HE WAS 7 OUT OF 10 PAIN, RN NOTIFIED. AM CARE DONE, DID PARTIAL BED BATH. VITALS AND I&O'S CHARTED. CALL LIGHT IN REACH. NO FURTHER NEEDS AT THIS TIME.
--- NOTE | 2021-01-04 14:15 | NUR ---
IN TO HANG ZOSYN, INFUSING THROUGH 20 G IV IN RFA, WHICH REMAINS PATENT. PT C/O FEELING MORE ANXIOUS AND BREATH RATE INCREASED. GIVEN 50 MG VISTARIL AND PO TYLENOL IT IS NOT YET TIME FOR NEXT NORCO AND PT CONTINUES TO HAVE 6/10 PAIN IN BOTTOM. ALLEVYN REMOVED TO VISUALIZE COCCYX, NO CHANGE, STILL HAS SMALL SKIN BREAKDOWN THE SIZE OF A PENCIL ERASER TO THE RIGHT OF TAIL BONE. LARGE SACRAL ALLEVYN PLACE FOR EXTRA COVERAGE PT HAS MANY BONY PROMINENCES. PT REPOSITIONED IN BED, EGG CRATE PADDING REMAINS BENEATH BOTTOM. CALL LIGHT IN REACH AND PT DENIES FURTHER NEEDS. REPORTS FEELING MORE AT EASE AFTER BEING ADJUSTED.
--- NOTE | 2021-01-04 18:46 | NUR ---
VSS. PT WEANED DOWN TO CHRONIC 3 L O2 VIA NC SINCE 1400 APPROXIMATE. NO ACUTE CHANGED TO ASSESSMENT. PT EATING AND DRINKING WELL. WORKING MODERATELY WELL W/ PHYSICAL THERAY THOUGH STILL GETS SOB W/ EXERTION, THOUGH HE DID NOT DESAT TODAY WHEN STANDING. LUNG SOUNDS REMAIN COARSE AND CRACKLES SCATTERED. I/O'S CHARTED. URINE OUTPUT SUFFICIENT. SOFT STOOL FROM COLOSTOMY. ABD DRESSING CDI. RFA SALINE LOCKED AFTER ZOSYN INFUSION. MAXIMINO AT BEDSIDE. PT FEELS SLIGHTLY ANXIOUS THOUGH DENYING NEED FOR ANXIETY MEDS AT THIS TIME.
--- NOTE | 2021-01-04 19:05 | NUR ---
SHIFT REPORT RECEIVED FROM DAYSHIFT DORIAN MCGRAW AT BEDSIDE, pt AWAKE AND RESTING IN BED. 3LNC IN PLACE, O2 SAT 90%, HR 115. pt DENIES NEEDS OR CONCERNS, IN ROOM. CALL LIGHT IN REACH.
--- NOTE | 2021-01-04 21:21 | NUR ---
ASSESSMENT COMPLETE, SCHEDULED MEDS GIVEN. pt DENIES NEED FOR PRN ANXIETY MED AT THIS TIME, WILL CONTINUE TO MONITOR. RR 24, NO DISTRESS NOTED. LUNG SOUNDS COURSE WITH SCATTERED CRACKLES, IS AT BEDSIDE. pt ENCOURAGED TO COUGH AND DEEP BREATH, VERABLIZED UNDERSTANDING. DRESSING CHANGE TO ABD COMPLETE, SALINE SOAKED GAUZE IN PLACE WITH DRY GAUZE AND TAPE. SITE APPEARS TO BE HEALING WELL, NO SIGNS OF INFECTION NOTED. COLOSTOMY BAG AND STOMA SITE ALSO WNL. ALLEVYN TO COCCYX REPLACED EARLIER ON DAYSHIFT PER SHIFT REPORT, DRESSING C/D/I. NO FURTHER NEEDS, CALL LIGHT IN REACH. VSS AND FRESH DRINKS PROVIDED.
--- NOTE | 2021-01-05 00:25 | NUR ---
pt resting in bed with eyes closed, rr approx 18-20. no distress or outward signs of anxiety or pain noted, allowed pt to continue resting. remains in room, call light in reach.
--- NOTE | 2021-01-05 02:57 | NUR ---
ROUNDED ON pt, pt AWAKE AND RESTING IN BED. REPORTS TOLERABLE 3/10 PAIN. DENIES NEED FOR ANXIETY MEDICATION AT THIS TIME, 3LNC IN PLACE. RR APPROX 23-24. NO DISTRESS NOTED. IN ROOM, HR 80'S. O2 SAT 90-91%. NO FURTHER NEEDS, CALL LIGHT IN REACH.
--- NOTE | 2021-01-05 04:50 | NUR ---
pt RESTING IN BED WITH EYES CLOSED, 4LNC IN PLACE. NO DISTRESS NOTED, pt APPEARS COMFORTABLE AND RELAXED. CALL LIGHT IN REACH. ALSO IN ROOM.
--- NOTE | 2021-01-05 07:12 | NUR ---
PT AWAKE AND INTERACTIVE AT TIME OF BEDSIDE REPORT. DENIES DISCOMFORTS OR NEEDS OF.
--- NOTE | 2021-01-05 09:27 | NUR ---
PT UPRIGHT IN BED [address] BREATHING APPEARS EVEN AND UNLABORED. PT TOLERATES 100% OF MORNING MEAL, DENIES PAIN OR DISCOMFORTS. IS PRESENT IN THE ROOM SHE DOES ABDOMINAL DRESSING CHANGE SHE HAS PREVIOUSLY DONE BEFORE HOSPITALIZATION. ASSISTS WITH COLOSTOMY WELL. BOTH PT AND DENY NEEDS.
[2021-01-05] MEDS ORDERED: IPRAT-ALBUT 0.5-3 ML INH (11:44)
[2021-01-05] MEDS ORDERED: QUETIAPINE FUMA25 MG PO ×2 (11:45)
[2021-01-05] MEDS ORDERED: PREDNISONE20 MG PO (11:51)
[2021-01-05] MEDS ORDERED: HYDROXYZINE PAM25 MG PO (11:52)
== END 2021-01-05 12:05 | disposition home or self-care (01) | DRG 196 ==
LOC: ED 18:00 → CCU 21:02 → MS 01-02 11:30
PROVIDERS: ADMIT Internal Medicine; ATTEND Internal Medicine
PROC: 5A09357 Assistance with Respiratory Ventilation, Less than 24 Consecutive Hours, Continuous Positive Airway Pressure (ICD-10-PCS; principal; 2020-12-28)
DX: J67.9 Hypersensitivity pneumonitis due to unspecified organic dust (principal); J96.21 Acute and chronic respiratory failure with hypoxia; J96.22 Acute and chronic respiratory failure with hypercapnia; J44.1 Chronic obstructive pulmonary disease with (acute) exacerbation; J84.9 Interstitial pulmonary disease, unspecified; Z20.822 Contact with and (suspected) exposure to COVID-19; N40.0 Benign prostatic hyperplasia without lower urinary tract symptoms; E78.5 Hyperlipidemia, unspecified; F32.9 Major depressive disorder, single episode, unspecified; G47.33 Obstructive sleep apnea (adult) (pediatric); F43.10 Post-traumatic stress disorder, unspecified; K21.9 Gastro-esophageal reflux disease without esophagitis; F41.1 Generalized anxiety disorder; Z93.3 Colostomy status; Z88.5 Allergy status to narcotic agent; Z88.8 Allergy status to other drugs, medicaments and biological substances; Z91.040 Latex allergy status; Z79.899 Other long term (current) drug therapy; Z79.1 Long term (current) use of non-steroidal anti-inflammatories (NSAID); Z79.51 Long term (current) use of inhaled steroids; Z79.52 Long term (current) use of systemic steroids
CPT/HCPCS: 36415; 36600; 71045; 80053; 82803; 83735; 83880; 84484; 85025; 87070; 87077; 87184; 87186; 87205; 93005; 93010; 94640; 94660; 94760; 94799; 96374; 96375; 96376; 97110; 97162; 97165; 97530; 99285-25; J1650; J1940; J1956; J2270; J2543; J2920; J2930; J3360; J3475; J7121; Q0177; U0003

== ENCOUNTER 2021-01-17 05:59 | Emergency (ER) | payer MEDICARE, OTHER ==
[~2021-01-17] VITALS: Ht 177.8 cm; Wt 72.6 kg
[~2021-01-17 05:59] MED LIST changes: +ACETYLCYST200 MG/1 M NEB; +EFFER-K 10 MEQ10 MEQ PO; +FOLIC ACID1 MG PO; +HYDROXYZINE PAM25 MG PO; +IPRAT-ALBUT 0.5-3 ML INH; +MAGOX 400400 MG PO; +PREDNISONE20 MG PO; +QUETIAPINE FUMA25 MG PO; +STOOL SOFTENER100 MG PO; +VITAMIN D31250 MC1 PO
--- OUTSIDE RECORDS SUMMARY | 2021-01-17 06:02 | XMS ---
PreManage Notification: FRANCINE ALEGRIA [employer] Events No recent Security Events currently on file CRITERIA MET - [facility] - - 2 Visits in 30 Days - History of Sepsis Dx CARE PROVIDERS KHUSHBOO ORELLANA [facility] 12/30/2020-Current PHONE: [phone] Howie Biswas [facility] 04/04/2018-Current PHONE: [phone] Josefa Leblanc Physiology Teacher/Warp Placer 11/23/2020-Current PHONE: [phone] Alek has no Care Guidelines for this patient. Care History Medical/Surgical 01/05/2019 [facility] Care Recommendation: - USE EXTREME CAUTION IN GIVING NARCOTICS TO THIS PATIENT. - Avoid Discharge Narcotic prescriptions if at all possible. Physician discretion. 04/04/2018 [facility] - Patient is currently established with [facility]. If patient is seen in the ED during business hours. Please contact CHWs at [facility]. Care Recommendation: This patient has [...] providing care. E.D. VISIT COUNT (12 MO.) 2 [facility] [place] 4 [facility]. TOTAL 6 NOTE: Visits indicate total known visits. ED/UCC VISIT TRACKING (12 MO.) 01/17/2021 06:00 [facility] TYPE: Emergency COMPLAINT: - ALTERED LOC 12/28/2020 18:00 [facility] TYPE: Emergency COMPLAINT: - SOB 12/26/2020 07:28 [facility] TYPE: Emergency COMPLAINT: - CHEST PAIN, SOB DIAGNOSES: - Hypertensive chronic kidney disease with stage 5 chronic kidney disease or end stage renal disease - Bronchitis, not specified as acute or chronic - Chronic obstructive pulmonary disease, unspecified - Latex allergy status - Allergy status to other drugs, medicaments and biological substances - Other group home (current) drug therapy - Chronic kidney disease, stage 3 unspecified - retirement (current) use of systemic steroids - Hyperlipidemia, unspecified 12/03/2020 03:22 [facility] TYPE: Emergency COMPLAINT: - DIFFICULTY BREATHING DIAGNOSES: - Essential (primary) hypertension - Chronic obstructive pulmonary disease, unspecified - Allergy status to other drugs, medicaments and biological substances - Respiratory failure, unspecified, unspecified whether with hypoxia or hypercapnia - Other group home (current) drug therapy - Shortness of breath - 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 10/13/2020 12:35 [facility] TYPE: Emergency DIAGNOSES: - abdominal pain - Diverticulitis of large intestine with perforation and abscess without bleeding - Chronic obstructive pulmonary disease, unspecified - Constipation 05/11/2020 11:56 [facility] TYPE: Emergency DIAGNOSES: - sob tent - Shortness of Breath - Chronic obstructive pulmonary disease with (acute) exacerbation - Bronchitis, not specified as acute or chronic INPATIENT VISIT TRACKING (12 MO.) 12/28/2020 21:02 [facility] TYPE: Medical Surgical COMPLAINT: - RESPIRATORY FAILURE DIAGNOSES: - Obstructive sleep apnea (adult) (pediatric) - Generalized anxiety disorder - retirement (current) use of systemic steroids - Interstitial pulmonary disease, unspecified - Allergy status to narcotic agent - Colostomy status - termite renewal inspector (current) use of non-steroidal anti-inflammatories (NSAID) - 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 - Post-traumatic stress disorder, unspecified - Acute and chronic respiratory failure with hypoxia - Major depressive disorder, single episode, unspecified - retirement (current) use of inhaled steroids - Hyperlipidemia, unspecified - Acute and chronic respiratory failure with hypercapnia - Benign prostatic hyperplasia without lower urinary tract symptoms - Chronic obstructive pulmonary disease with (acute) exacerbation - Allergy status to other drugs, medicaments and biological substances - Gastro-esophageal reflux disease without esophagitis - Latex allergy status - Other group home (current) drug therapy 12/03/2020 07:28 [facility] TERE [facility] TYPE: Surgical Services DIAGNOSES: [...] - Unspecified severe protein-calorie malnutrition 10/13/2020 12:35 [facility] TYPE: Surgical Services DIAGNOSES: - Ulcer of anus and rectum - Diverticulitis of large intestine with perforation and abscess without bleeding - Other peritonitis - Chronic obstructive pulmonary disease, unspecified - Disruption of external operation (surgical) wound, not elsewhere classified, initial encounter [email or web address]
--- NOTE | 2021-01-18 14:05 | EKG ---
[facility] [address] [place], [place] [address] Signed Sinus rhythm with premature atrial complexes Right bundle branch block Anteroseptal infarct , age undetermined Abnormal ECG No previous ECGs available Confirmed by ELLEN ERWIN DO ([id number]) on 01/18/2021 2:05:35 PM Electronically Signed By: ELLEN ERWIN DO 01/18/21 1405 PATIENT NAME: FRANCINE ALEGRIA Electrocardiogram DATE OF : 56 PHYSICIAN: ELLEN ERWIN DO REPORT #: [id number] REPORT IS CONFIDENTIAL AND NOT TO BE RELEASED WITHOUT AUTHORIZATION
== END 2021-01-17 09:00 ==
LOC: ED 05:59
DX: I46.9 Cardiac arrest, cause unspecified (principal); J44.9 Chronic obstructive pulmonary disease, unspecified; I13.0 Hypertensive heart and chronic kidney disease with heart failure and stage 1 through stage 4 chronic kidney disease, or unspecified chronic kidney disease; E78.5 Hyperlipidemia, unspecified; N18.30 Chronic kidney disease, stage 3 unspecified; I50.9 Heart failure, unspecified; Z87.891 Personal history of nicotine dependence; Z88.8 Allergy status to other drugs, medicaments and biological substances; Z91.041 Radiographic dye allergy status; Z79.899 Other long term (current) drug therapy; Z79.52 Long term (current) use of systemic steroids
CPT/HCPCS: 51702; 71045; 80053; 82803; 84484; 85025; 92950; 93005; 93010; 94002; 99285-25; J0171; J7121